=== PATIENT | female | born 1990 | race Caucasian/White ===

== ENCOUNTER 2021-10-15 23:21 | Emergency (ER) | payer BC, MEDICAID, SELFPAY ==
--- NOTE | 2021-10-15 23:26 | ED_ITS ---
HPI - Abdominal Pain General: Stated Complaint: abd pain Time Seen by Provider: 10/15/21 23:26 Discharge Plan Discharge Condition: Stable Coding Level of Care Code ED Iron Worker Foreman for Marcin Roth
[2021-10-15 23:27] VITALS: BP 159/107; PULSE 80; RESP 18; TEMP 36.4; O2SAT 97; BMI 35.5
--- NOTE | 2021-10-15 23:31 | USR_ITS ---
PROCEDURE INFORMATION: Exam: US Abdomen, Limited; Right Upper Quadrant Exam date and time: 10/15/2021 11:31 PM Age: 30 years old Clinical indication: Abdominal pain; Generalized; Additional info: Abd pain TECHNIQUE: Imaging protocol: US abdomen. Real time ultrasound with image documentation. Limited exam focused on the right upper quadrant. COMPARISON: No relevant prior studies available. FINDINGS: Liver: Mild increase in echotexture of liver parenchyma which could represent underlying steatosis. No focal liver lesion. Gallbladder: Normal. No gallstones. There is no gallbladder wall thickening. Common bile duct: Normal. No stones. No dilation. Pancreas: Visualized pancreas is unremarkable. Right kidney: Normal. No mass. No hydronephrosis. US/US gall bladder [id number] IMPRESSION: No acute abnormality in the right upper quadrant the abdomen.
--- NOTE | 2021-10-15 23:31 | W.ED.ABDPA2 ---
HPI - Abdominal Pain General: Chief Complaint: Abdominal Pain Stated Complaint: abd pain Time Seen by Provider: 10/15/21 23:26 Source: patient Mode of arrival: ambulatory Limitations: no limitations History of Present Illness: 30-year-old female states over the last week she has been having right upper quadrant abdominal pain. States that tonight the pains worsened especially since 6:30 PM when she ate. She has had some nausea denies vomiting denies fever she denies any worsening proving factors currently. No history of any abdominal surgeries. Associated Symptoms: Denies chills, dysuria and fever(s) Review of Systems Const: Denies: fever(s), chills, body aches or change in appetite Eyes: Denies: blurry vision or eye discomfort ENMT: Denies: throat pain or dental pain Card: Denies: chest pain Resp: Denies: dyspnea GI: Reports: abdominal pain : Denies: dysuria Musc: Denies: neck pain or back pain Skin/Breast: Denies: rash Neuro: Denies: headache(s) Psych: Denies: depression Anderson/Lymph: Denies: easy bruising All/Imm: Denies: urticaria PFSH ED PFSH: Medical History (Updated 10/16/21 @ 02:32 by Fernanda Monroe MD) No pertinent past medical history Social History (Updated 10/15/21 @ 23:32 by Fernanda Monroe MD) Substance/Drug Use: never Physical Exam Const: COMMON NORMALS: no acute distress, patient oriented x3 and healthy appearing HENMT: COMMON NORMALS: normocephalic and atraumatic HEAD & SCALP: normocephalic and atraumatic Eye: COMMON NORMALS: Equal, round and reactive pupils present and EOMs intact bilaterally PUPIL: Yes Equal, round and reactive pupils present Neck/C-Spine: COMMON NORMALS: full ROM and supple Chest: COMMONS NORMALS: normal inspection of the chest and normal palpation of entire chest wall Resp: COMMON NORMALS: normal respiratory effort, No retractions, No use of accessory muscles and clear to auscultation bilaterally AUSCULTATION: clear to auscultation bilaterally Cardio: COMMON NORMALS: regular rate, regular rhythm and No murmurs present (Cardio) RATE: regular rate RHYTHM: regular rhythm GI: COMMON NORMALS: Normal to inspection, nondistended, normoactive bowel sounds present, Soft to palpation, non-tender and no masses PALPATION: Yes Soft to palpation and Yes Tenderness to palpation present (GI) Details: RUQ Extremity: COMMON NORMALS: normal to inspection and full ROM Neuro: COMMON NORMALS: patient oriented x3, moves all extremities and no focal motor deficits Psych: COMMON NORMALS: mental status grossly normal, Normal thought process present and cooperative THOUGHT PROCESS: Normal thought process present Skin: COMMON NORMALS: no rashes or lesions noted and no wounds GENERAL SKIN EXAM: no rashes or lesions noted Course Vital Signs: Vital signs: Vital Signs Temperature 97.6 F 10/15/21 23:27 Pulse Rate 67 10/16/21 01:28 Respiratory Rate 16 10/16/21 01:28 Blood Pressure 151/97 10/16/21 01:28 Pulse Oximetry 98 10/16/21 01:28 MDM - Abdominal Pain Medical Decision Making . Patient presents for abdominal pain over the right upper quadrant ultrasound here showed no signs of cholecystitis blood work is normal as well. We will place patient on pain meds have her follow-up with surgery and return if worsening she understands agrees to plan. Lab Data : 10/15/21 23:45 10/15/21 23:45 Labs/Radiology: Radiology Impressions Gallbladder Ultrasound 10/15/21 23:31 IMPRESSION: No acute abnormality in the right upper quadrant the abdomen. Laboratory Results WBC 7.7 10^3/uL (4.0-10.0) 10/15/21 23:45 RBC 4.59 10^6/uL (4.1-5.3) 10/15/21 23:45 Hgb 12.5 g/dL (11.5-15.3) 10/15/21 23:45 Hct 38.6 % (37.0-47.0) 10/15/21 23:45 MCV 84.1 fl (81-99) 10/15/21 23:45 MCH 27.2 pg (28.0-34.0) L 10/15/21 23:45 MCHC 32.4 g/dL (30.0-36.0) 10/15/21 23:45 RDW 12.8 % (12.1-15.1) 10/15/21 23:45 Plt Count 341 10^3/cmm (130-400) 10/15/21 23:45 MPV 11.7 fL (7.4-10.4) H 10/15/21 23:45 Neut % (Auto) 71.0 % 10/15/21 23:45 Lymph % (Auto) 19.5 % 10/15/21 23:45 [place] % (Auto) 7.9 % 10/15/21 23:45 Eos % (Auto) 0.4 % 10/15/21 23:45 Baso % (Auto) 0.5 % 10/15/21 23:45 Neut # (Auto) 5.45 10^3/uL (1.8-7.7) 10/15/21 23:45 Lymph # (Auto) 1.5 10^3/uL (0.8-4.8) 10/15/21 23:45 [place] # (Auto) 0.6 10^3/uL (0.2-0.9) 10/15/21 23:45 Eos # (Auto) 0.0 10^3/uL (0.0-0.8) 10/15/21 23:45 Baso # (Auto) 0.0 10^3/uL (0.0-0.1) 10/15/21 23:45 Nucleated RBC % (auto) 0 % 10/15/21 23:45 Nucleated RBCs # 0.0 /100WBC 10/15/21 23:45 Sodium 138 mmol/L (136-145) 10/15/21 23:45 Potassium 4.1 mmol/L (3.5-5.1) 10/15/21 23:45 Chloride 101 mmol/L (98-107) 10/15/21 23:45 Carbon Dioxide 25 mmol/L (22-29) 10/15/21 23:45 Anion Gap 16.1 (5-19) 10/15/21 23:45 BUN 12 mg/dL (6-20) 10/15/21 23:45 Creatinine 0.6 mg/dL (0.5-0.9) 10/15/21 23:45 GFR Calculation 115.9 mL/min (90-130) 10/15/21 23:45 Glucose 92 mg/dL (65-115) 10/15/21 23:45 Calculated Osmolality 285 mOsm/kg (285-295) 10/15/21 23:45 Calcium 9.5 mg/dL (8.5-10.5) 10/15/21 23:45 Total Bilirubin 1.3 mg/dL (0.15-1.2) H 10/15/21 23:45 AST 363 U/L (0-32) H 10/15/21 23:45 ALT 263 U/L (0-33) H 10/15/21 23:45 Alkaline Phosphatase 143 IU/L (35-105) H 10/15/21 23:45 Total Protein 7.5 g/dL (6.6-8.7) 10/15/21 23:45 Albumin 4.5 g/dL (3.5-5.2) 10/15/21 23:45 Globulin 3.0 g/dL (1.3-4.6) 10/15/21 23:45 Lipase 19 U/L (13-60) 10/15/21 23:45 HCG, Qual Negative (Negative) 10/15/21 23:45 Urine Color Yellow (Yellow) 10/16/21 01:15 Urine Appearance Clear (CLEAR) 10/16/21 01:15 Urine pH 5 (5-7) 10/16/21 01:15 Ur Specific [place] 1.020 (1.005-1.030) 10/16/21 01:15 Urine Protein Neg (Negative) 10/16/21 01:15 Urine Glucose (UA) Norm (Normal) 10/16/21 01:15 Urine Ketones Negative (Negative) 10/16/21 01:15 Urine Blood 2+ (Negative) H 10/16/21 01:15 Urine Nitrate Negative (Negative) 10/16/21 01:15 Urine Bilirubin 1+ (Negative) H 10/16/21 01:15 Urine Urobilinogen 1 mg/dL (Negative) H 10/16/21 01:15 Ur Leukocyte Esterase Negative (Negative) 10/16/21 01:15 Urine RBC 10-15 /hpf (0-2) H 10/16/21 01:15 Urine WBC 0-4 /hpf (0-5) H 10/16/21 01:15 Ur Squamous Epith Cells 0-4 /hpf (0-5) H 10/16/21 01:15 Amorphous Sediment Not Reportable 10/16/21 01:15 Urine Bacteria Trace /hpf (NONE) 10/16/21 01:15 Urine Mucus 2+ /hpf 02/22/22 01:15 Discharge Plan Discharge Patient Disposition: Home Clinical Impression: Abdominal pain Condition: Stable Prescriptions: New hydrocodone-acetaminophen 5-325 mg tablet 1 tab PO Q6H PRN (Reason: pain) Qty: 14 0RF ondansetron 4 mg tablet,disintegrating 4 mg PO Q6H PRN (Reason: nausea and vomiting) Qty: 14 0RF Protonix 40 mg tablet,delayed release (DR/EC) 40 mg PO DAILY Qty: 60 0RF Discharge Orders: Discharge ED (Routine); Ordered 10/16/21 Ordered By: Fernanda Monroe Referrals: Talha Granados MD [Physician] - 1-3 days Discharge Diet: Advance as tolerated Discharge Activity: Resume usual activity Patient Instructions: Abdominal Pain (ED), Opioid Safety Coding Level of Care Code ED Donor Floor Technician for Chg Fwd Exam Comprehensive
[2021-10-15] MEDS: sodium chloride 0.9% 1,000 ML 999 ML IV (23:43)
[2021-10-15] MEDS: ondansetron 2 mg/ML SDV 2 mL 4 MG IVP (23:44)
[2021-10-15 23:53] LABS: Basophils % 0.5 %; Eosinophils % 0.4 %; Hematocrit 38.6 % (37.0-47.0); Hemoglobin 12.5 g/dL (11.5-15.3); Lymphocytes # 1.5 10^3/uL (0.8-4.8); Lymphocytes % 19.5 %; Mean Corpuscular HGB Conc 32.4 g/dL (30.0-36.0); Mean Corpuscular Hemoglobin 27.2 pg (28.0-34.0); Mean Corpuscular Volume 84.1 fl (81-99); Mean Platelet Volume 11.7 fL (7.4-10.4); Monocytes # 0.6 10^3/uL (0.2-0.9); Monocytes % 7.9 %; Neutrophils # 5.45 10^3/uL (1.8-7.7); Nucleated Red Blood Cells % 0 %; Platelet Count 341 10^3/cmm (130-400); Red Blood Count 4.59 10^6/uL (4.1-5.3); Red Cell Distribution Width 12.8 % (12.1-15.1); White Blood Count 7.7 10^3/uL (4.0-10.0)
[2021-10-16 00:10] LABS: HCG, Serum Qual Negative (Negative)
[2021-10-16 00:14] LABS: Alanine Aminotransferase 263 U/L (0-33); Albumin Level 4.5 g/dL (3.5-5.2); Alkaline Phosphatase 143 IU/L (35-105); Anion Gap 16.1 (5-19); Aspartate Amino Transferase 363 U/L (0-32); Blood Urea Nitrogen 12 mg/dL (6-20); Calcium 9.5 mg/dL (8.5-10.5); Carbon Dioxide 25 mmol/L (22-29); Chloride 101 mmol/L (98-107); Glomerular Filtration Rate 115.9 mL/min (90-130); Glucose 92 mg/dL (65-115); Lipase 19 U/L (13-60); Osmolality Calculated 285 mOsm/kg (285-295); Potassium 4.1 mmol/L (3.5-5.1); Sodium 138 mmol/L (136-145); Total Bilirubin 1.3 mg/dL (0.15-1.2); Total Protein 7.5 g/dL (6.6-8.7)
[2021-10-16 01:28] VITALS: BP 151/97; PULSE 67; RESP 16; O2SAT 98
[2021-10-16 01:34] LABS: Add Urine Culture? No; Add Urine Microscopic? YES; Bacteria Urine TRACE /hpf; Bilirubin Urine 1+ (Negative); Blood Urine 2+ (Negative); Glucose Urine UA Norm (Normal); Ketones Urine Negative (Negative); Leukocyte Esterase Urine Negative (Negative); Mucus Urine 2+ /hpf; Nitrate Urine Negative (Negative); Protein Urine Neg (Negative); Squamous Epithelial Cell Urine 0-4 /hpf (0-5); Urine Appearance Clear (CLEAR); Urine Color Yellow (Yellow); Urobilinogen Urine 1 mg/dL (Negative); WBC Urine 0-4 /hpf (0-5); pH Urine 5 (5-7)
== END 2021-10-16 02:57 | disposition home or self-care (01) ==
PROVIDERS: Nurse Practitioner Family; Emergency Provider Emergency Medicine
DX: R10.9 Unspecified abdominal pain (principal)
CPT/HCPCS: 76705; 80053; 81001; 83690; 84703; 85025; 96361; 96374; 96375; 99284; J2405; J7030

== ENCOUNTER 2021-10-16 03:35 | Inpatient (IN) | payer BC, SELFPAY ==
[2021-10-16] VITALS (18 sets, daily range): BP systolic 113–149; BP diastolic 69–113; PULSE 56–94; RESP 16–24; TEMP 36.2–36.9; O2SAT 93–100; BMI 26.6
--- NOTE | 2021-10-16 03:36 | CTR_ITS ---
PROCEDURE INFORMATION: Exam: CT Abdomen And Pelvis With Contrast Exam date and time: 10/16/2021 3:36 AM Age: 30 years old Clinical indication: Nausea and vomiting; Abdominal pain; Localized; Upper; Additional info: Abd pain TECHNIQUE: Imaging protocol: Computed tomography of the abdomen and pelvis with contrast. Radiation optimization: All CT scans at this facility use at least one of these dose optimization techniques: automated exposure control; mA and/or kV adjustment per patient size (includes targeted exams where dose is matched to clinical indication); or iterative reconstruction. Contrast material: OMNI 300; Contrast volume: 95 ml; Contrast route: INTRAVENOUS (IV); COMPARISON: US gall bladder [id number] 10/15/2021 11:50 PM RADIATION DOSE METRICS: Total DLP (mGy-cm): 1728.34 FINDINGS: Liver: Slight intrahepatic ductal dilatation. No abnormally decreased density in the liver compared to the spleen; delayed images not available. No enhancing liver mass. Gallbladder and bile ducts: Gallstones again evident. Gallbladder distension, but no significant thickening of its wall. No extrahepatic biliary ductal dilatation. No calcified stone in the CBD. Pancreas: Pancreatic enlargement with haziness and fluid in the fat along it. Fluid in the anterior pararenal spaces, especially on the left. Slight fluid and stranding in the transverse mesocolon. No pancreatic ductal dilatation. Spleen: No splenomegaly. Adrenal glands: No adrenal mass. Kidneys and ureters: 7.9 mm irregular stone in the left lower renal sinus. No hydronephrosis or ureteral stone. Stomach and bowel: Suspicion of adhesions. No bowel obstruction. Appendix: No appendicitis. Intraperitoneal space: No free air. Slight fluid in the lesser sac. Vasculature: Moderate to marked left ovarian and pelvic varices. Minimal right ovarian and slight right pelvic varices, also. Two left renal arteries. No aortic aneurysm. Lymph nodes: Enlarged periportal lymph node. No enlarged nodes elsewhere. Urinary bladder: Unremarkable as visualized. Reproductive: Mild uterine prominence. No ovarian enlargement. Bones/joints: Unremarkable. No acute fracture. Soft tissues: Small round density in the subcutaneous fat of the left buttock consistent with residual from a prior injection. CT/CT abdomen pelvis w con* [id number] IMPRESSION: 1. Acute pancreatitis. Cholelithiasis again evident. Slight intrahepatic ductal dilatation, but no calcified stone in the nonenlarged CBD. 2. Irregular stone in the left lower renal sinus. No hydronephrosis or ureteral stone. 3. 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 Enlarged periportal lymph node. Other findings mentioned above.
--- NOTE | 2021-10-16 03:41 | ED_ITS ---
Documented by User: Fernanda Monroe MD 10/16/21 05:33 HPI - Abdominal Pain General: Chief Complaint: Abdominal Pain Stated Complaint: ABD Pain Time Seen by Provider: 10/16/21 03:36 Source: patient Mode of arrival: ambulatory Limitations: no limitations History of Present Illness: 30-year-old female seen here earlier tonight for upper abdominal pain patient's ultrasound here showed no signs of cholecystitis or acute findings blood work was normal earlier as well. She was having no pain at discharge her states that when she got home started having severe pain again in her epigastric region states pain is currently an 8 out of 10 much worse with movement improved with rest no vomiting no diarrhea no fever. Associated Symptoms: Denies chills, dysuria and fever(s) Review of Systems Const: Denies: fever(s), chills, body aches or change in appetite Eyes: Denies: blurry vision or eye discomfort ENMT: Denies: throat pain or dental pain Card: Denies: chest pain Resp: Denies: dyspnea GI: Reports: abdominal pain : Denies: dysuria Musc: Denies: neck pain or back pain Skin/Breast: Denies: rash Neuro: Denies: headache(s) Psych: Denies: depression Anderson/Lymph: Denies: easy bruising All/Imm: Denies: urticaria PFSH ED PFSH: Medical History No pertinent past medical history Social History Substance/Drug Use: never Physical Exam Const: COMMON NORMALS: no acute distress, patient oriented x3 and healthy appearing HENMT: COMMON NORMALS: normocephalic and atraumatic HEAD & SCALP: normocephalic and atraumatic Eye: COMMON NORMALS: Equal, round and reactive pupils present and EOMs intact bilaterally PUPIL: Yes Equal, round and reactive pupils present Neck/C-Spine: COMMON NORMALS: full ROM and supple Chest: COMMONS NORMALS: normal inspection of the chest and normal palpation of entire chest wall Resp: COMMON NORMALS: normal respiratory effort, No retractions, No use of accessory muscles and clear to auscultation bilaterally AUSCULTATION: clear to auscultation bilaterally Cardio: COMMON NORMALS: regular rate, regular rhythm and No murmurs present (Cardio) RATE: regular rate RHYTHM: regular rhythm GI: COMMON NORMALS: Normal to inspection, nondistended, normoactive bowel sounds present, Soft to palpation and no masses PALPATION: Yes Soft to palpation and Yes Tenderness to palpation present (GI) (epigastric tenderness) Extremity: COMMON NORMALS: normal to inspection and full ROM Neuro: COMMON NORMALS: patient oriented x3, moves all extremities and no focal motor deficits Psych: COMMON NORMALS: mental status grossly normal, Normal thought process present and cooperative THOUGHT PROCESS: Normal thought process present Skin: COMMON NORMALS: no rashes or lesions noted and no wounds GENERAL SKIN EXAM: no rashes or lesions noted Course Vital Signs: Vital signs: Vital Signs Temperature 97.2 F L 10/16/21 03:39 Pulse Rate 56 L 10/16/21 07:45 Respiratory Rate 18 10/16/21 07:45 Blood Pressure 147/69 10/16/21 07:45 Pulse Oximetry 96 10/16/21 07:23 MDM - Abdominal Pain Lab Data : 10/16/21 04:22 10/16/21 04:22 Labs/Radiology: Radiology Impressions Abdomen/Pelvis CT 10/16/21 03:36 IMPRESSION: 1. Acute pancreatitis. Cholelithiasis again evident. Slight intrahepatic ductal dilatation, but no calcified stone in the nonenlarged CBD. 2. Irregular stone in the left lower renal sinus. No hydronephrosis or ureteral stone. 3. 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 Enlarged periportal lymph node. Other findings mentioned above. Laboratory Results WBC 7.7 10^3/uL (4.0-10.0) 10/16/21 04:22 RBC 4.17 10^6/uL (4.1-5.3) 10/16/21 04:22 Hgb 11.5 g/dL (11.5-15.3) 10/16/21 04:22 Hct 36.3 % (37.0-47.0) L 10/16/21 04:22 MCV 87.1 fl (81-99) 10/16/21 04:22 MCH 27.6 pg (28.0-34.0) L 10/16/21 04:22 MCHC 31.7 g/dL (30.0-36.0) 10/16/21 04:22 RDW 13.1 % (12.1-15.1) 10/16/21 04:22 Plt Count 286 10^3/cmm (130-400) 10/16/21 04:22 MPV 12.3 fL (7.4-10.4) H 10/16/21 04:22 Neut % (Auto) 72.6 % 10/16/21 04:22 Lymph % (Auto) 17.8 % 10/16/21 04:22 [place] % (Auto) 8.7 % 10/16/21 04:22 Eos % (Auto) 0.4 % 10/16/21 04:22 Baso % (Auto) 0.1 % 10/16/21 04:22 Neut # (Auto) 5.59 10^3/uL (1.8-7.7) 10/16/21 04:22 Lymph # (Auto) 1.4 10^3/uL (0.8-4.8) 10/16/21 04:22 [place] # (Auto) 0.7 10^3/uL (0.2-0.9) 10/16/21 04:22 Eos # (Auto) 0.0 10^3/uL (0.0-0.8) 10/16/21 04:22 Baso # (Auto) 0.0 10^3/uL (0.0-0.1) 10/16/21 04:22 Nucleated RBC % (auto) 0 % 10/16/21 04:22 Nucleated RBCs # 0.0 /100WBC 10/16/21 04:22 Sodium 138 mmol/L (136-145) 10/16/21 04:22 Potassium 3.7 mmol/L (3.5-5.1) 10/16/21 04:22 Chloride 103 mmol/L (98-107) 10/16/21 04:22 Carbon Dioxide 25 mmol/L (22-29) 10/16/21 04:22 Anion Gap 13.7 (5-19) 10/16/21 04:22 BUN 12 mg/dL (6-20) 10/16/21 04:22 Creatinine 0.6 mg/dL (0.5-0.9) 10/16/21 04:22 GFR Calculation 115.9 mL/min (90-130) 10/16/21 04:22 Glucose 100 mg/dL (65-115) 10/16/21 04:22 Calculated Osmolality 286 mOsm/kg (285-295) 10/16/21 04:22 Calcium 8.6 mg/dL (8.5-10.5) 10/16/21 04:22 Total Bilirubin 1.8 mg/dL (0.15-1.2) H 10/16/21 04:22 AST 414 U/L (0-32) H 10/16/21 04:22 ALT 350 U/L (0-33) H 10/16/21 04:22 Alkaline Phosphatase 122 IU/L (35-105) H 10/16/21 04:22 Total Protein 6.6 g/dL (6.6-8.7) 10/16/21 04:22 Albumin 3.8 g/dL (3.5-5.2) 10/16/21 04:22 Globulin 2.8 g/dL (1.3-4.6) 10/16/21 04:22 Lipase 59309 U/L (13-60) H 10/16/21 04:22 Hepatitis A IgM Ab Non-reactive (Nonreactive) 10/15/21 23:45 Hep Bs Antigen Non-reactive (Nonreactive) 10/15/21 23:45 Hep Bs Antibody 377.0 (11.5-1000) 10/15/21 23:45 Hep B Core Total Ab Non-reactive (Nonreactive) 10/15/21 23:45 Hepatitis C Antibody Non-reactive (Nonreactive) 10/15/21 23:45 Discharge Plan Discharge Prescriptions: No Action ondansetron 4 mg tablet,disintegrating 4 mg PO Q6H PRN (Reason: nausea and vomiting) Qty: 14 0RF pantoprazole [Protonix] 40 mg tablet,delayed release (DR/EC) 40 mg PO DAILY Qty: 60 0RF Vitamin C 500 mg Tablet 500 mg PO .OCCASIONALLY 0RF ibuprofen 200 mg Tablet 400 - 600 mg PO Q6H PRN (Reason: Pain) 0RF garlic Tablet 1 tab PO .OCCASIONALLY 0RF Fish Oil 1 cap PO .OCCASIONALLY 0RF Vitamin D3 1 cap PO .OCCASIONALLY 0RF Coding Level of Care Code ED Advertising Account Executive for Chg Fwd Exam Comprehensive Documented by User: Destin Marvin DO 10/16/21 08:38 HPI - Abdominal Pain General: Chief Complaint: Abdominal Pain Stated Complaint: ABD Pain Time Seen by Provider: 10/16/21 03:36 PFSH ED PFSH: Medical History No pertinent past medical history Social History Substance/Drug Use: never Course Vital Signs: Vital signs: Vital Signs Temperature 97.2 F L 10/16/21 03:39 Pulse Rate 56 L 10/16/21 07:45 Respiratory Rate 18 10/16/21 07:45 Blood Pressure 147/69 10/16/21 07:45 Pulse Oximetry 96 10/16/21 07:23 MDM - Abdominal Pain Medical Decision Making CT shows cholelithiasis reviewing ultrasound and discussed with Dr. Grullon she feels there was cholelithiasis present on the initial ultrasound although the initial report does not read as such. Her lipase is surprisingly elevated from earlier this evening although the CT did read out as having acute pancreatitis. It her T bili is also elevated as well as her last liver enzymes was no dilation of the common bile duct. Discussed with Dr. Ortega will admit. I am starting her on Zosyn. Pain control n.p.o. and fluids we will repeat a redraw for amylase and lipase. Medical Records I reviewed the patient's medical records. Lab Data I reviewed the patient's lab results. : 10/16/21 04:22 10/16/21 04:22 Labs/Radiology: Radiology Impressions Abdomen/Pelvis CT 10/16/21 03:36 IMPRESSION: 1. Acute pancreatitis. Cholelithiasis again evident. Slight intrahepatic ductal dilatation, but no calcified stone in the nonenlarged CBD. 2. Irregular stone in the left lower renal sinus. No hydronephrosis or ureteral stone. 3. 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 Enlarged periportal lymph node. Other findings mentioned above. Laboratory Results WBC 7.7 10^3/uL (4.0-10.0) 10/16/21 04: RBC 4.17 10^6/uL (4.1-5.3) 10/16/21 04:22 Hgb 11.5 g/dL (11.5-15.3) 10/16/21 04:22 Hct 36.3 % (37.0-47.0) L 10/16/21 04:22 MCV 87.1 fl (81-99) 10/16/21 04:22 MCH 27.6 pg (28.0-34.0) L 10/16/21 04:22 MCHC 31.7 g/dL (30.0-36.0) 10/16/21 04:22 RDW 13.1 % (12.1-15.1) 10/16/21 04:22 Plt Count 286 10^3/cmm (130-400) 10/16/21 04:22 MPV 12.3 fL (7.4-10.4) H 10/16/21 04:22 Neut % (Auto) 72.6 % 10/16/21 04:22 Lymph % (Auto) 17.8 % 10/16/21 04:22 [place] % (Auto) 8.7 % 10/16/21 04:22 Eos % (Auto) 0.4 % 10/16/21 04:22 Baso % (Auto) 0.1 % 10/16/21 04:22 Neut # (Auto) 5.59 10^3/uL (1.8-7.7) 10/16/21 04:22 Lymph # (Auto) 1.4 10^3/uL (0.8-4.8) 10/16/21 04:22 [place] # (Auto) 0.7 10^3/uL (0.2-0.9) 10/16/21 04:22 Eos # (Auto) 0.0 10^3/uL (0.0-0.8) 10/16/21 04:22 Baso # (Auto) 0.0 10^3/uL (0.0-0.1) 10/16/21 04:22 Nucleated RBC % (auto) 0 % 10/16/21 04:22 Nucleated RBCs # 0.0 /100WBC 10/16/21 04:22 Sodium 138 mmol/L (136-145) 10/16/21 04:22 Potassium 3.7 mmol/L (3.5-5.1) 10/16/21 04:22 Chloride 103 mmol/L (98-107) 10/16/21 04:22 Carbon Dioxide 25 mmol/L (22-29) 10/16/21 04:22 Anion Gap 13.7 (5-19) 10/16/21 04:22 BUN 12 mg/dL (6-20) 10/16/21 04:22 Creatinine 0.6 mg/dL (0.5-0.9) 10/16/21 04:22 GFR Calculation 115.9 mL/min (90-130) 10/16/21 04:22 Glucose 100 mg/dL (65-115) 10/16/21 04:22 Calculated Osmolality 286 mOsm/kg (285-295) 10/16/21 04:22 Calcium 8.6 mg/dL (8.5-10.5) 10/16/21 04:22 Total Bilirubin 1.8 mg/dL (0.15-1.2) H 10/16/21 04:22 AST 414 U/L (0-32) H 10/16/21 04:22 ALT 350 U/L (0-33) H 10/16/21 04:22 Alkaline Phosphatase 122 IU/L (35-105) H 10/16/21 04:22 Total Protein 6.6 g/dL (6.6-8.7) 10/16/21 04:22 Albumin 3.8 g/dL (3.5-5.2) 10/16/21 04:22 Globulin 2.8 g/dL (1.3-4.6) 10/16/21 04:22 Lipase 10137 U/L (13-60) H 10/16/21 04:22 Hepatitis A IgM Ab Non-reactive (Nonreactive) 10/15/21 23:45 Hep Bs Antigen Non-reactive (Nonreactive) 10/15/21 23:45 Hep Bs Antibody 377.0 (11.5-1000) 10/15/21 23:45 Hep B Core Total Ab Non-reactive (Nonreactive) 10/15/21 23:45 Hepatitis C Antibody Non-reactive (Nonreactive) 10/15/21 23:45 Discharge Plan Discharge Prescriptions: No Action ondansetron 4 mg tablet,disintegrating 4 mg PO Q6H PRN (Reason: nausea and vomiting) Qty: 14 0RF pantoprazole [Protonix] 40 mg tablet,delayed release (DR/EC) 40 mg PO DAILY Qty: 60 0RF Vitamin C 500 mg Tablet 500 mg PO .OCCASIONALLY 0RF ibuprofen 200 mg Tablet 400 - 600 mg PO Q6H PRN (Reason: Pain) 0RF garlic Tablet 1 tab PO .OCCASIONALLY 0RF Fish Oil 1 cap PO .OCCASIONALLY 0RF Vitamin D3 1 cap PO .OCCASIONALLY 0RF Coding Level of Care Code ED Advertising Account Executive for Chg Fwd Exam Comprehensive
[2021-10-16] MEDS: lidocaine 2% viscous 15 ML, aluminum-mag hydrox-simethicon 30 ML, sucralfate oral liq 1 GM PO (03:46)
[2021-10-16] MEDS: morphine 4 mg/mL SDV 1 mL IVP (03:46)
[2021-10-16] MEDS: ondansetron 2 mg/ML SDV 2 mL 4 MG IVP ×4 (03:51→22:19)
[2021-10-16] MEDS: iohexol 300 mg/mL 100 mL Btl IV (04:13)
[2021-10-16 04:43] LABS: Hepatitis A Antibody IgM Non-Reactive (Nonreactive); Hepatitis B Core AB, Total Non-Reactive (Nonreactive); Hepatitis B Surface Antigen Non-Reactive (Nonreactive); Hepatitis C Virus Antibody Non-Reactive (Nonreactive)
[2021-10-16] MEDS: HYDROmorphone 1 mg/mL INJ 1 mL IVP ×2 (05:12→07:23)
[2021-10-16] MEDS: lactated ringers 1,000 ML 999 ML IV (06:25)
[2021-10-16 07:15] LABS: Basophils % 0.1 %; Eosinophils % 0.4 %; Hematocrit 36.3 % (37.0-47.0); Hemoglobin 11.5 g/dL (11.5-15.3); Lymphocytes # 1.4 10^3/uL (0.8-4.8); Lymphocytes % 17.8 %; Mean Corpuscular HGB Conc 31.7 g/dL (30.0-36.0); Mean Corpuscular Hemoglobin 27.6 pg (28.0-34.0); Mean Corpuscular Volume 87.1 fl (81-99); Mean Platelet Volume 12.3 fL (7.4-10.4); Monocytes # 0.7 10^3/uL (0.2-0.9); Monocytes % 8.7 %; Neutrophils # 5.59 10^3/uL (1.8-7.7); Neutrophils % 72.6 %; Nucleated Red Blood Cells % 0 %; Platelet Count 286 10^3/cmm (130-400); Red Blood Count 4.17 10^6/uL (4.1-5.3); Red Cell Distribution Width 13.1 % (12.1-15.1); White Blood Count 7.7 10^3/uL (4.0-10.0)
[2021-10-16 07:27] LABS: Alanine Aminotransferase 350 U/L (0-33); Albumin Level 3.8 g/dL (3.5-5.2); Alkaline Phosphatase 122 IU/L (35-105); Anion Gap 13.7 (5-19); Aspartate Amino Transferase 414 U/L (0-32); Blood Urea Nitrogen 12 mg/dL (6-20); Calcium 8.6 mg/dL (8.5-10.5); Carbon Dioxide 25 mmol/L (22-29); Chloride 103 mmol/L (98-107); Creatinine Clr Calc Pharmacy 139.2241; Globulin 2.8 g/dL (1.3-4.6); Glomerular Filtration Rate 115.9 mL/min (90-130); Glucose 100 mg/dL (65-115); Osmolality Calculated 286 mOsm/kg (285-295); Potassium 3.7 mmol/L (3.5-5.1); Sodium 138 mmol/L (136-145); Total Bilirubin 1.8 mg/dL (0.15-1.2); Total Protein 6.6 g/dL (6.6-8.7)
--- NOTE | 2021-10-16 07:48 | PC.NURSE ---
Resting in bed, rates pain 2/10 after dilaudid.
[2021-10-16 08:05] LABS: Lipase 13220 U/L (13-60)
--- NOTE | 2021-10-16 08:20 | P.HP_ITS ---
Providers/Chief Complaint Admitting Physician: General Surgery Talha Granados MD Chief Complaint: ABD Pain History of Present Illness Lamar Rice is a 30 year old female who started having right upper quadrant abdominal pain yesterday. This was associated with some nausea. She says she has had several similar episodes over the past couple of months and figured she was having gallbladder issues. She just delivered a baby in July, and t farooqnks she was having some symptoms of biliary colic during her . She came to the emergency department last night and an ultrasound was read as no evidence of cholelithiasis. The patient's pain actually eased up and she eventually went home, but says after she was up walking around for about 45 minutes at home the pain returned. She says now the pain seems to radiate off the either side of the upper abdomen. She has been somewhat constipated lately and had a very small bowel movement yesterday morning. She denies any evidence of hematochezia, melena, acholic stools, jaundice, etc. She came back to the emergency room today and a CAT scan was done and actually revealed cholelithia sis and evidence of acute pancreatitis. The patient's liver function studies were mildly elevated and her amylase and lipase were both elevated, as well. Interestingly, her lipase was measured at over 13,000 after being normal last night. A repeat confirmation test was done and it was already significantly lower again. Review of Systems General: Reports: 10 or more systems reviewed and unremarkable except in HPI and below Const: Denies: fever(s) Resp: Denies: dyspnea GI: Reports: abdominal pain, nausea and vomiting; Denies: hematemesis, hematochezia or melena Medications/Allergies Home Medications Medication Instructions Recorded Confirmed Last Taken Type Fish Oil 1 cap PO .OCCASIONALLY 10/16/21 10/16/21 Unknown History Vitamin D3 1 cap PO .OCCASIONALLY 10/16/21 10/16/21 Unknown History ascorbic acid (vitamin C) 500 mg 500 mg PO .OCCASIONALLY 10/16/21 10/16/21 Unknown History tablet (Vitamin C) garlic 1 tab PO .OCCASIONALLY 10/16/21 10/16/21 Unknown History ibuprofen 200 mg tablet 400 - 600 mg PO Q6H PRN 10/16/21 10/16/21 Unknown History ondansetron 4 mg disintegrating 4 mg PO Q6H PRN #14 tab 10/16/21 10/16/21 Unknown Rx tablet pantoprazole 40 mg tablet,delayed 40 mg PO DAILY #60 tab 10/16/21 10/16/21 Unknown Rx release (Protonix) Allergies Allergy/AdvReac Type Severity Reaction Status Date / Time No Known Allergies Allergy Verified 10/16/21 07:54 PFSH Acute PFSH: Medical History (Updated 10/16/21 @ 12:03 by Talha Granados MD) No pertinent past medical history Surgical History (Updated 10/16/21 @ 12:05 by Talha Granados MD) History of oral surgery Social History (Updated 10/16/21 @ 12:05 by Talha Granados MD) Smoking and tobacco status: never smoked Alcohol intake: never Substance/Drug Use: never Vitals/I&O/Wt Last Vital Signs Temp 97.2 F L 10/16/21 03:39 Pulse 56 L 10/16/21 07:45 Resp 18 10/16/21 07:45 BP 147/69 10/16/21 07:45 Pulse Ox 96 10/16/21 07:23 10/15/21 10/16/21 10/16/21 22:59 06:59 14:59 Intake Total 1000 / 1000 Balance 1000 / 1000 Weight last 48 hrs Weight 165 lb Physical Exam Narrative: The patient was encountered in her hospital room. She does not arti ear to be in any distress. The pupils are equal. No carotid bruits are heard. The lungs are clear anteriorly. The heart is regular. The abdomen is mildly to moderately obese but has good bowel sounds and is soft. The patient does have mild/moderate tenderness in both the left and right upper quadrants as well as the epigastrium. Patel sign is equivocal. The extremities reveal no edema. N eurologically the patient appears to be grossly intact. Data : 10/16/21 04:22 10/16/21 04:22 Other Labs: Laboratory Tests 10/16/21 10/16/21 04:22 08:40 Total Bilirubin 1.8 H AST 414 H ALT 350 H Alkaline Phosphatase 122 H Amylase 1462 H* Lipase 96651 H 2094 H US: Radiologist's impression: RUQ US 10/15/2021IMPRESSION: No acute abnormality in the right upper quadrant the abdomen. CT Abd/Pel: Radiologist's impression: CT abdomen/pelvis 10/16/2021 IMPRESSION: 1. Acute pancreatitis. Cholelithiasis again evident. Slight intrahepatic ductal dilatation, but no calcified stone in the nonenlarged CBD. 2. Irregular stone in the left lower renal sinus. No hydronephrosis or ureteral stone. 3. 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 Enlarged periportal lymph node. A&P Assessment and plan (1) Gallstone pancreatitis: I have to assume the patient's pancreatitis is secondary to passing a gallstone. There is no evidence of a retained stone on CAT scan currently and her lipase already seems the be decreasing rather rapidly if the laboratory results are to be believed. We discussed gallstone pancreatitis in some detail. I told the patient that we are somewhat at the mercy of her pancreas and what do see that get better before we proceed with a cholecystectomy. 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 Recheck labs tomorrow morning. Timing of a cholecystectomy will be based on the patient's clinical progress. Status: Acute Attestations Medical Necessity Statement*: Based on my medical assessment, presenting symptoms, medical accuity and consideration of surgical therapy, I expect this patient will require treatment in the hospital for a period spanning at least 2 midnights. Coding Level of Care Code Acute Brick Kiln Burner for Marcin Roth Diagnoses Gallstone pancreatitis K85.10
[2021-10-16 09:32] LABS: Amylase 1462 U/L (28-100); Lipase 2094 U/L (13-60)
[2021-10-16] MEDS: piperacillin-tazobactam 4.5 GM in sodium chloride 0.9% (plus) 50 ML IV (09:52)
[2021-10-16] MEDS: HYDROmorphone 1 mg/mL INJ 1 mL 0.5 MG IVP ×5 (11:42→22:19)
[2021-10-16] MEDS: D5-NS 0.45% + KCL 20 mEq 20 MEQ/1,000 ML BAG 100 MEQ IV ×2 (12:42→22:19)
[2021-10-16] MEDS: famotidine 20 mg/2 mL INJ IVP ×2 (12:42→23:13)
[2021-10-16] MEDS: piperacillin-tazobactam 3.375 GM in sodium chloride 0.9% (plus) 50 ML IV (17:34)
[2021-10-16] MEDS: guaiFENesin 600 mg Tablet PO (17:49)
[2021-10-17] VITALS (12 sets, daily range): BP systolic 107–121; BP diastolic 71–83; PULSE 87–108; RESP 16–20; TEMP 36.9–37.9; O2SAT 95
[2021-10-17] MEDS: HYDROmorphone 1 mg/mL INJ 1 mL 0.5 MG IVP ×5 (01:44→21:09)
[2021-10-17] MEDS: piperacillin-tazobactam 3.375 GM in sodium chloride 0.9% (plus) 50 ML IV ×3 (01:45→17:16)
[2021-10-17 03:03] LABS: Basophils % 0.2 %; Eosinophils % 0.2 %; Hematocrit 36.6 % (37.0-47.0); Hemoglobin 11.8 g/dL (11.5-15.3); Lymphocytes # 1.3 10^3/uL (0.8-4.8); Lymphocytes % 13.1 %; Mean Corpuscular HGB Conc 32.2 g/dL (30.0-36.0); Mean Corpuscular Hemoglobin 27.6 pg (28.0-34.0); Mean Corpuscular Volume 85.5 fl (81-99); Mean Platelet Volume 11.5 fL (7.4-10.4); Monocytes # 0.7 10^3/uL (0.2-0.9); Monocytes % 6.6 %; Neutrophils # 7.92 10^3/uL (1.8-7.7); Neutrophils % 79.4 %; Nucleated Red Blood Cells % 0 %; Platelet Count 274 10^3/cmm (130-400); Red Blood Count 4.28 10^6/uL (4.1-5.3); Red Cell Distribution Width 13.2 % (12.1-15.1)
[2021-10-17 03:21] LABS: Alanine Aminotransferase 265 U/L (0-33); Albumin Level 3.8 g/dL (3.5-5.2); Alkaline Phosphatase 125 IU/L (35-105); Aspartate Amino Transferase 120 U/L (0-32); Blood Urea Nitrogen 8 mg/dL (6-20); Calcium 8.8 mg/dL (8.5-10.5); Carbon Dioxide 26 mmol/L (22-29); Chloride 105 mmol/L (98-107); Glucose 106 mg/dL (65-115); Osmolality Calculated 289 mOsm/kg (285-295); Sodium 140 mmol/L (136-145); Total Bilirubin 1.1 mg/dL (0.15-1.2); Total Protein 6.8 g/dL (6.6-8.7)
[2021-10-17 03:31] LABS: Amylase 557 U/L (28-100)
[2021-10-17 03:44] LABS: Lipase 551 U/L (13-60)
[2021-10-17] MEDS: ondansetron 2 mg/ML SDV 2 mL 4 MG IVP (05:51)
--- NOTE | 2021-10-17 07:26 | PM.PN ---
Subjective Subjective: Patient says she feels about the same. She seems to notice her discomfort is a little bit more confined to the epigastrium and left upper quadrant today. She is not passing any flatus. Vitals/I&O/Wt Last Vital Signs Temp 98.8 F 10/17/21 04:00 Pulse 88 10/17/21 04:00 Resp 18 10/17/21 05:51 BP 109/74 10/17/21 04:00 Pulse Ox 95 10/17/21 04:00 10/16/21 10/17/21 10/17/21 22:59 06:59 14:59 Intake Total 1061.667 / 2471.667 410 / 2471.667 Output Total 500 / 700 Balance 561.667 / 1771.667 410 / 1771.667 Weight last 48 hrs Weight 165 lb Physical Exam Narrative: Bowel sounds are infrequent. The abdomen remains soft and she has some mild tenderness remaining in the upper abdomen. She tells me she does not feel like she is urinating much. Data : 10/17/21 02:48 10/17/21 02:48 Other Labs: Laboratory Tests 10/17/21 02:48 Total Bilirubin 1.1 Direct Bilirubin 0.30 AST 120 H ALT 265 H Alkaline Phosphatase 125 H Amylase 557 H* Lipase 551 H A&P Assessment and plan (1) Gallstone pancreatitis: I have to assume the patient's pancreatitis is secondary to passing a gallstone. There is no evidence of a retained stone on CAT scan. We discussed gallstone pancreatitis in some detail. I told the patient that we are somewhat at the mercy of her pancreas and what do see that get better before we proceed with a cholecystectomy. 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 Laboratory studies appear to be improving rather quickly. I told the patient we may be ready discussed a cholecystectomy as early as tomorrow morning. 500 mL LR bolus. Status: Acute Attestations Medical Necessity Statement*: Patient requires continued inpatient care for acute pancreatitis/eventual plans for cholecystectomy. Coding Level of Care Code Acute News Camera Person for Marcin Roth Diagnoses Gallstone pancreatitis K85.10
[2021-10-17] MEDS: lactated ringers 500 ML 999 ML IV (07:56)
[2021-10-17] MEDS: D5-NS 0.45% + KCL 20 mEq 20 MEQ/1,000 ML BAG 100 MEQ IV ×2 (07:57→17:17)
[2021-10-17] MEDS: HYDROcodone-acetaminophen 5-325 mg Tablet PO ×4 (08:03→23:07)
--- NOTE | 2021-10-17 10:16 | PC.CHAP ---
Pastoral Care Encounter/Spiritual Assessment Type of Contact [] Declined dimension mill worker visit [] Patient/Family/Request visit [] Outpatient visit [] Follow-up visit [] Physician referral [] Code/Alert [x] Routine visit [] Staff referral [] Actively dying [x] Patient sleeping [] Family support [] [] Out of room [] Palliative care [] [] Receiving care in room [] Pre-surgical visit [] Trauma [] Long length of stay [] ICU visit [] Other: Relational/Emotional Strength [] Patient feels connected with others/family/visitors/staff [] Distress [] Loneliness/isolation [] Abandonment Spirituality of Patient [] Person of Kanchan [] Attends Uatsdin of their Kanchan [] Believes in Prayer [] Reads Bible or Sikh materials [] There are Spiritual issues to be addressed Prism Measurer Interventions [] Prayer [] Active listening [] Non-anxious presence [] Spiritual/emotional support [] Crisis/trauma care [] Spiritual counseling [] Bereavement support [] Provided bereavement packet [] Provided Bible/devotional materials [] Provided toy/stuffed animal, coloring book to patient or family member [] Provided Communion [] Anointing/[place] [] Salvation [] Completed spiritual assessment [] Other: Impact on Illness or Injury [] Angry [] Fearful [] Anxious [] Often cries [] Exhaustion [] Unable to work [] Unable to attend adventism [] Unable to walk/stand [] Unable to read [] Unable to drive [] Unable to eat/drink [] Unable to sleep [] Unable to be with family [] Patient intubated [] Other: Summary Time spent with patient
[2021-10-17] MEDS: famotidine 20 mg/2 mL INJ IVP ×2 (11:07→23:07)
[2021-10-18] VITALS (8 sets, daily range): BP systolic 102–121; BP diastolic 68–76; PULSE 0–94; RESP 15–18; TEMP 37.2–37.7; O2SAT 92–98
[2021-10-18] MEDS: piperacillin-tazobactam 3.375 GM in sodium chloride 0.9% (plus) 50 ML IV ×3 (01:44→18:37)
[2021-10-18] MEDS: HYDROcodone-acetaminophen 5-325 mg Tablet PO ×5 (02:50→21:03)
[2021-10-18] MEDS: D5-NS 0.45% + KCL 20 mEq 20 MEQ/1,000 ML BAG 100 MEQ IV ×2 (02:51→14:31)
[2021-10-18 05:12] LABS: Basophils % 0.2 %; Eosinophils % 0.2 %; Hematocrit 35.2 % (37.0-47.0); Hemoglobin 11.1 g/dL (11.5-15.3); Lymphocytes # 1.3 10^3/uL (0.8-4.8); Mean Corpuscular HGB Conc 31.5 g/dL (30.0-36.0); Mean Corpuscular Hemoglobin 27.8 pg (28.0-34.0); Mean Corpuscular Volume 88.2 fl (81-99); Mean Platelet Volume 11.1 fL (7.4-10.4); Monocytes # 1.1 10^3/uL (0.2-0.9); Monocytes % 8.8 %; Neutrophils # 10.37 10^3/uL (1.8-7.7); Neutrophils % 80.3 %; Nucleated Red Blood Cells % 0 %; Platelet Count 269 10^3/cmm (130-400); Red Blood Count 3.99 10^6/uL (4.1-5.3); Red Cell Distribution Width 13.2 % (12.1-15.1); White Blood Count 12.9 10^3/uL (4.0-10.0)
[2021-10-18 05:28] LABS: Alanine Aminotransferase 143 U/L (0-33); Albumin Level 3.7 g/dL (3.5-5.2); Alkaline Phosphatase 108 IU/L (35-105); Amylase 218 U/L (28-100); Aspartate Amino Transferase 33 U/L (0-32); Globulin 2.6 g/dL (1.3-4.6); Lipase 92 U/L (13-60); Total Bilirubin 1.6 mg/dL (0.15-1.2); Total Protein 6.3 g/dL (6.6-8.7)
[2021-10-18 05:29] LABS: Anion Gap 10.6 (5-19); Blood Urea Nitrogen 5 mg/dL (6-20); Calcium 8.8 mg/dL (8.5-10.5); Carbon Dioxide 26 mmol/L (22-29); Chloride 103 mmol/L (98-107); Creatinine Clr Calc Pharmacy 139.2241; Glomerular Filtration Rate 115.9 mL/min (90-130); Glucose 97 mg/dL (65-115); Osmolality Calculated 279 mOsm/kg (285-295); Potassium 3.6 mmol/L (3.5-5.1); Sodium 136 mmol/L (136-145)
--- NOTE | 2021-10-18 06:57 | PM.PN ---
Subjective Subjective: The patient says she is feeling better today. She is now passing flatus. Vitals/I&O/Wt Last Vital Signs Temp 99.3 F 10/18/21 04:27 Pulse 65 10/18/21 06:00 Resp 18 10/18/21 04:27 BP 115/68 10/18/21 04:27 Pulse Ox 96 10/18/21 04:27 10/17/21 10/17/21 10/18/21 14:59 22:59 06:59 Intake Total 1563.333 / 3553.333 983.333 / 3553.333 1006.667 / 3553.333 Output Total 350 / 1000 650 / 1000 Balance 1213.333 / 2553.333 333.333 / 2553.333 1006.667 / 2553.333 Physical Exam Narrative: The patient ran a temp bowel sounds are present. She still has some mild left upper quadrant tenderness. Data : 10/18/21 04:52 10/18/21 04:52 Other Labs: Laboratory Tests 10/18/21 04:52 Total Bilirubin 1.6 H Direct Bilirubin 0.40 H AST 33 H ALT 143 H Alkaline Phosphatase 108 H Amylase 218 H Lipase 92 H A&P Assessment and plan (1) Gallstone pancreatitis: The patient seems to be improving, although her white blood cell and liver function tests are slightly up again this morning. We have discussed a cholecystectomy probably tomorrow morning now. She is agreeable to that plan. Status: Acute Attestations Medical Necessity Statement*: Patient needs continued inpatient care for acute pancreatitis/awaiting timing of cholecystectomy. Coding Level of Care Code Acute Superintendent Production for Marcin Roth Diagnoses Gallstone pancreatitis K85.10
--- NOTE | 2021-10-18 09:52 | PC.CHAP ---
Pastoral Care Encounter/Spiritual Assessment Type of Contact [] Declined sewer and inspector visit [] Patient/Family/Request visit [] Outpatient visit [] Follow-up visit [] Physician referral [] Code/Alert [x] Routine visit [] Staff referral [] Actively dying [x] Patient sleeping [] Family support [] [] Out of room [] Palliative care [] [] Receiving care in room [] Pre-surgical visit [] Trauma [] Long length of stay [] ICU visit [] Other: Relational/Emotional Strength [] Patient feels connected with others/family/visitors/staff [] Distress [] Loneliness/isolation [] Abandonment Spirituality of Patient [] Person of Kanchan [] Attends Protestant of their [place] [] Believes in Prayer [] Reads Bible or Mosque materials [] There are Spiritual issues to be addressed Wind Plant Manager Interventions [] Prayer [] Active listening [] Non-anxious presence [] Spiritual/emotional support [] Crisis/trauma care [] Spiritual counseling [] Bereavement support [] Provided bereavement packet [] Provided Bible/devotional materials [] Provided toy/stuffed animal, coloring book to patient or family member [] Provided Communion [] Anointing/[place] [] Salvation [] Completed spiritual assessment [] Other: Impact on Illness or Injury [] Angry [] Fearful [] Anxious [] Often cries [] Exhaustion [] Unable to work [] Unable to attend pentecostalism [] Unable to walk/stand [] Unable to read [] Unable to drive [] Unable to eat/drink [] Unable to sleep [] Unable to be with family [] Patient intubated [] Other: Summary Time spent with patient
[2021-10-18] MEDS: famotidine 20 mg/2 mL INJ IVP (14:31)
--- NOTE | 2021-10-18 19:38 | ANES.PREANE2 ---
Pre-Anesthetic Assessment Height/Weight: Height 1.68 m Weight 74.843 kg Temp Pulse Resp BP Pulse Ox 99.0 F 88 15 102/70 95 10/18/21 16:34 10/18/21 16:34 10/18/21 16:34 10/18/21 16:34 10/18/21 16:34 Preop Diagnosis: Gallstone pancreatitis Operation Date: 10/19/21 07:00 Proposed Procedures p Laparoscopic Cholecystectomy with Cholangiograms(Not Applicable) - Talha Granados MD Familial anesthetic complications: None Was Beta Jennifer taken within 24 hours: N/A Was Clonidine taken within 24 hours: N/A Social No alcohol and No tobacco Exam alert, oriented x 3, clear to auscultation bilaterally and regular rate & rhythm Airway Submandibular: within normal limits Cervical ROM: within normal limits Mallampati: Class II Dentition: full History/ROS No significant history except as noted Pulmonary None reported CV/HEM Anemia None reported Hepatic Elevated LFTs GI Gall stone pancreatitis Metabolic None reported Musc/skel None reported Neuropsych None reported Anesthetic Plan ASA status: 3 (30 year old female with gallstone pancreatitis ) Anesthesia: Anesthesia Evaluation and General Other: We discussed risk and benefits of general anesthesia including PONV, sore throat (sometimes severe), corneal abrasion, positioning and peripheral nerve injuries, life threatening allergic reaction, post operative ICU admission requiring prolonged intubation, stroke, heart attack, , and rare incidences of recall. Patient consents to proceed with general anesthesia. Risk of > 500 ml blood loss (7ml/kg in children): No Medications/Allergies Home Medications Medication Instructions Recorded Confirmed Last Taken Type Fish Oil 1 cap PO .OCCASIONALLY 10/16/21 10/16/21 Unknown History Vitamin D3 1 cap PO .OCCASIONALLY 10/16/21 10/16/21 Unknown History ascorbic acid (vitamin C) 500 mg 500 mg PO .OCCASIONALLY 10/16/21 10/16/21 Unknown History tablet (Vitamin C) garlic 1 tab PO .OCCASIONALLY 10/16/21 10/16/21 Unknown History ibuprofen 200 mg tablet 400 - 600 mg PO Q6H PRN 10/16/21 10/16/21 Unknown History ondansetron 4 mg disintegrating 4 mg PO Q6H PRN #14 tab 10/16/21 10/16/21 Unknown Rx tablet pantoprazole 40 mg tablet,delayed 40 mg PO DAILY #60 tab 10/16/21 10/16/21 Unknown Rx release (Protonix) Allergies Allergy/AdvReac Type Severity Reaction Status Date / Time No Known Allergies Allergy Verified 10/16/21 07:54 Current Medications Generic Name Dose Route Start Last Admin Trade Name Freq PRN Reason Stop Dose Admin Hydrocodone Bitart/Acetaminophen 1 - 2 tab 10/17/21 07:25 10/18/21 15:04 Hydrocodone-Acetaminophen 5-325 Mg Tablet PO 2 tab Q4H PRN Administration MODERATE TO SEVERE PAIN Famotidine 20 mg 10/16/21 12:00 10/18/21 14:31 Famotidine 20 Mg/2 Ml Inj IVP 20 mg Q12H JOSH Administration Guaifenesin 600 mg 10/16/21 17:39 10/16/21 17:49 Guaifenesin 600 Mg Tablet PO 600 mg BID PRN Administration CONGESTION Hydromorphone HCl 0.5 mg 10/16/21 09:43 10/17/21 21:09 Hydromorphone 1 Mg/Ml Inj 1 Ml IVP 0.5 mg Q2H PRN Administration PAIN Potassium Chloride/Dextrose/Sod Cl 20 meq in 1,000 mls @ 100 mls/hr 10/16/21 12:00 10/18/21 14:31 D5-Ns 0.45% + Kcl 20 Meq IV 100 mls/hr .Q10H JOSH Administration Piperacillin Sod/Tazobactam 50 mls @ 12.5 mls/hr 10/16/21 18:00 10/18/21 18:37 Sod 3.375 gm/ Sodium Chloride IV 12.5 mls/hr Q8H JOSH Administration Protocol Ondansetron HCl 4 mg 10/16/21 09:43 10/17/21 05:51 Ondansetron 2 Mg/Ml Sdv 2 Ml IVP 4 mg Q6H PRN Administration NAUSEA PFSH Anesthesia Medical History No pertinent past medical history Surgical History History of oral surgery Social History Smoking and tobacco status: never smoked Alcohol intake: never Data Anesthesia : 10/18/21 04:52 10/18/21 04:52 Short CBC 10/17/21 10/18/21 Range/Units 02:48 04:52 WBC 10.0 12.9 H (4.0-10.0) 10^3/uL Hgb 11.8 11.1 L (11.5-15.3) g/dL Hct 36.6 L 35.2 L (37.0-47.0) % MCV 85.5 88.2 (81-99) fl Plt Count 274 269 (130-400) 10^3/cmm Neut % (Auto) 79.4 80.3 % Neut # (Auto) 7.92 H 10.37 H (1.8-7.7) 10^3/uL BMP 10/17/21 10/18/21 02:48 04:52 Sodium 140 136 Potassium 4.0 3.6 Chloride 105 103 Carbon Dioxide 26 26 BUN 8 5 L Creatinine 0.7 0.6 Glucose 106 97 Calcium 8.8 8.8 Liver Function 10/17/21 10/18/21 Range/Units 02:48 04:52 Total Bilirubin 1.1 1.6 H (0.15-1.2) mg/dL Direct Bilirubin 0.30 0.40 H (0.00-0.30) mg/dL AST 120 H 33 H (0-32) U/L ALT 265 H 143 H (0-33) U/L Alkaline Phosphatase 125 H 108 H (35-105) IU/L Albumin 3.8 3.7 (3.5-5.2) g/dL Cardiac Studies: No Data to Display
[2021-10-19] VITALS (26 sets, daily range): BP systolic 102–148; BP diastolic 68–98; PULSE 63–102; RESP 12–27; TEMP 36.3–37.2; O2SAT 89–100
--- NOTE | 2021-10-19 | XR_ITS ---
WS: [id number] C-ARM RADIOGRAPHS RIGHT UPPER QUADRANT; 6 IMAGES HISTORY: gallstone pancreatitis COMPARISON: CT 10/16/2021 Intraoperative injection of the common bile duct. There is very mild distention of the common bile du ct in the central hepatic ducts. No filling defect is evident on the imaging submitted. Normal taperi ng through the pancreatic head. XR/XR cholangio operative [id number] IMPRESSION: No filling defect or obstruction of the common bile duct. No residual stone mary beth ntified.
[2021-10-19] MEDS: D5-NS 0.45% + KCL 20 mEq 20 MEQ/1,000 ML BAG 100 MEQ IV (00:12)
[2021-10-19] MEDS: famotidine 20 mg/2 mL INJ IVP ×3 (01:50→23:25)
[2021-10-19] MEDS: HYDROcodone-acetaminophen 5-325 mg Tablet PO ×3 (01:54→23:23)
[2021-10-19] MEDS: piperacillin-tazobactam 3.375 GM in sodium chloride 0.9% (plus) 50 ML IV (01:54)
[2021-10-19 03:05] LABS: Basophils % 0.2 %; Eosinophils # 0.1 10^3/uL (0.0-0.8); Eosinophils % 0.8 %; Hematocrit 32.5 % (37.0-47.0); Hemoglobin 10.2 g/dL (11.5-15.3); Lymphocytes # 1.6 10^3/uL (0.8-4.8); Lymphocytes % 14.7 %; Mean Corpuscular HGB Conc 31.4 g/dL (30.0-36.0); Mean Corpuscular Hemoglobin 27.6 pg (28.0-34.0); Mean Corpuscular Volume 87.8 fl (81-99); Mean Platelet Volume 10.7 fL (7.4-10.4); Monocytes % 8.6 %; Neutrophils # 8.38 10^3/uL (1.8-7.7); Neutrophils % 75.3 %; Nucleated Red Blood Cells % 0 %; Platelet Count 261 10^3/cmm (130-400); Red Cell Distribution Width 13.2 % (12.1-15.1); White Blood Count 11.1 10^3/uL (4.0-10.0)
[2021-10-19 03:27] LABS: Alanine Aminotransferase 86 U/L (0-33); Albumin Level 3.3 g/dL (3.5-5.2); Alkaline Phosphatase 96 IU/L (35-105); Amylase 88 U/L (28-100); Aspartate Amino Transferase 15 U/L (0-32); Globulin 2.7 g/dL (1.3-4.6); Lipase 28 U/L (13-60); Total Bilirubin 0.9 mg/dL (0.15-1.2)
[2021-10-19 03:28] LABS: Anion Gap 11.7 (5-19); Blood Urea Nitrogen 5 mg/dL (6-20); Calcium 8.6 mg/dL (8.5-10.5); Carbon Dioxide 24 mmol/L (22-29); Chloride 103 mmol/L (98-107); Creatinine Clr Calc Pharmacy 139.2241; Glomerular Filtration Rate 115.9 mL/min (90-130); Glucose 95 mg/dL (65-115); Osmolality Calculated 277 mOsm/kg (285-295); Potassium 3.7 mmol/L (3.5-5.1); Sodium 135 mmol/L (136-145)
--- NOTE | 2021-10-19 06:20 | PC.NURSE ---
PT LEFT FLOOR TO SURGERY AT 0615
--- NOTE | 2021-10-19 06:37 | PM.PN ---
Subjective Subjective: The patient continues to feel little bit better each day. She says over the past couple of days her main pain has been more in her back than in her front. Vitals/I&O/Wt Last Vital Signs Temp 98.9 F 10/19/21 06:36 Pulse 92 10/19/21 06:36 Resp 18 10/19/21 06:36 BP 123/75 10/19/21 06:36 Pulse Ox 96 10/19/21 06:36 10/18/21 10/18/21 10/19/21 14:59 22:59 06:59 Intake Total 1050 / 2755.000 30 / 2755.000 1675.000 / 2755.000 Output Total 700 / 700 Balance 1050 / 2055.000 -670 / 2055.000 1675.000 / 2055.000 Physical Exam Narrative: Mild tenderness remaining. Data : 10/19/21 02:52 10/19/21 02:52 Other Labs: Laboratory Tests 10/19/21 02:52 Total Bilirubin 0.9 Direct Bilirubin 0.30 AST 15 ALT 86 H Alkaline Phosphatase 96 Amylase 88 Lipase 28 A&P Assessment and plan (1) Gallstone pancreatitis: Amylase and lipase have returned normal. Liver function tests are un concerning at this point. Laparoscopic cholecystectomy with intraoperative cholangiography today. The patient says all of her questions have been answered. Status: Acute Attestations Medical Necessity Statement*: Patient requires continued inpatient care for gallstone pancreatitis. Surgery planned for today. Coding Level of Care Code Acute Sugar Trucker for Marcin Roth Diagnoses Gallstone pancreatitis K85.10
[2021-10-19] MEDS: sodium chloride 0.9% 1,000 ML 30 ML IV ×2 (06:43→08:20)
--- NOTE | 2021-10-19 06:54 | P.ANESUD_ITS ---
Pre-Anesthetic Update Pre-Anesthetic Assessment: Date of Surgery/Procedure: 10/19/21 Preop Rose Marie gnosis: Gallstone pancreatitis Proposed Procedure: Operation Date: 10/19/21 07:00 Proposed Procedures p Laparoscopic Cholecystectomy with Cholangiograms(Not Applicable) - Talha Granados MD Any changes to Pre-Anesthetic Assessment?: No Last Intake: Intake Last Liquid Date 10/18/21 Last Liquid Time 23:59 Labs Last 48hrs: Short CBC 10/18/21 10/19/21 Range/Units 04:52 02:52 WBC 12.9 H 11.1 H (4.0-10.0) 10^3/ uL Hgb 11.1 L 10.2 L (11.5-15.3) g/dL Hct 35.2 L 32.5 L (37.0-47.0) % MCV 88.2 87.8 (81-99) fl Plt Count 269 261 (130-400) 10^3/c mm Neut % (Auto) 80.3 75.3 % Neut # (Auto) 10.37 H 8.38 H (1.8-7.7) 10^3/u L BMP 10/18/21 10/19/21 04:52 02:52 Sodium 136 135 L Potassium 3.6 3.7 Chloride 103 103 Carbon Dioxide 26 24 BUN 5 L 5 L Creatinine 0.6 0.6 Glucose 97 95 Calcium 8.8 8.6 Liver Function 10/18/21 10/19/21 Range/Units 04:52 02:52 Total Bilirubin 1.6 H 0.9 (0.15-1.2) mg/dL Direct Bilirubin 0.40 H 0.30 (0.00-0.30) mg/d L AST 33 H 15 (0-32) U/L ALT 143 H 86 H (0-33) U/L Alkaline Phosphata se 108 H 96 (35-105) IU/L Albumin 3.7 3.3 L (3.5-5.2) g/dL Vitals: Temperature 98.9 F 10/19/21 06:36 Temperature Source Temporal Artery S can 10/19/21 06:36 Pulse Rate 92 10/19/21 06:36 Pulse Rhythm 10/16/21 05:51 Pulse Strength 3+ Normal 10/16/21 03:39 Respiratory Rate 18 10/19/21 06:36 Respiratory Effort Non-Labored 10/18/21 20:00 Respiratory Depth Normal 10/18/21 20:00 Respiratory Patter n 10/18/21 20:00 Blood Pressure 123/75 10/19/21 06:36 Blood Pressure Coni n 91 10/19/21 06:36 Blood Pressure Pos ition Semi Fowlers 10/18/21 20:00 Pulse Oximetry 96 10/19/21 06:36 Oxygen Delivery Me thod 10/19/21 06:36 Sepsis Recent Feve r Within 48 Hours No 10/16/21 03:39 Sepsis New/Unexpla ined Change in Men jada Status No 10/16/21 03:39 Exam: Pre-Anes Outpt Exam: alert, oriented x 3, clear to auscultation bilaterally and regular rate & rhythm Cardiac Studies: No Data to Display
--- NOTE | 2021-10-19 06:55 | ANES.PROC ---
Anesthesia Procedures Procedure/Date: 10/19/21 Other Information: After unusuccesful attempt at standard PIV US guided PIV was placed. After sterile prep and using real time US guidance for vessel selection an 18 g PIV was inserted with real time visualization of needle entry and real time visualization of catheter advancement. Tolerated well. 4 attempts total.
[2021-10-19 06:57] LABS: OR HCG Qualitative Urine Negative (Negative)
[2021-10-19] MEDS: scopolamine 1.5 Patch 1 PATCH TRANSDERMA (06:58)
--- NOTE | 2021-10-19 08:22 | PM.OP ---
Operative Report Date of procedure: October 19, 2021 Pre-op diagnosis: Preop Diagnosis Status post episode of gallstone pancreatitis. Post-op diagnosis: Same. Procedure done: Laparoscopic cholecystectomy with intraoperative cholangiography. Specimens removed/disposition: Gallbladder. Surgeon: General Surgery Talha Granados MD Estimated blood loss: 10 mL. Complications: None. Procedure: The patient was brought to the Operating Room and was placed in a supine position on the Operating Room table. General endotracheal anesthesia was induced. The abdomen was prepped and draped in a sterile fashion. A small vertical incision was carried out in the inferior aspect of the umbilicus. Blunt dissection was carried out down to the fascia, which was grasped with a Odilon clamp. A stay suture of 0 Vicryl was placed on either side of the midline and the midline fascia was incised. The underlying peritoneum was opened bluntly and the Sae port was placed directly into the peritoneal cavity and was held in place with the inflatable balloon. The peritoneal cavity was insufflated with carbon dioxide. The laparoscope was used to inspect the abdominal cavity and no gross abnormalities were noted. A 5 millimeter port was placed in the epigastrium under direct vision. Two 5-millimeter ports were placed on the right side of the abdomen under direct vision. The gallbladder was grasped and was elevated. Blunt dissection and hydrodissection were carried out in the infundibular region of the gallbladder and the cystic duct and cystic artery were identified. The gallbladder was partially removed from the liver bed using cautery and the spatula to confirm the anatomy. The [place] dissector was used to manipulate any contents in the cystic duct back towards the gallbladder. A clip was placed on the gallbladder side of the cystic duct. A small opening was made in the cystic duct with a pair of laparoscopic scissors. A 14-gauge angiocatheter was passed through the anterior abdominal wall in the right upper quadrant and was used to pass a cholangiocatheter into the peritoneal cavity. The cholangiocatheter was manipulated into the opening in the cystic duct and the duct was irrigated with saline. Some small stone fragments came out of the small opening in the cystic duct. After all of the return irrigant was clear the cholangiocatheter was held in place with a loose clip. The C-arm was positioned and a cholangiogram was performed. There was good filling of the hepatic radicals and the distal common bile duct. There was good flow of dye into the duodenum without any obvious evidence of filling defects or obstruction. The loose clip holding the cholangiocatheter in place was removed and the cholangiocatheter and angiocatheter were removed from the anterior abdominal wall. The cystic duct and cystic artery were further clipped and completely divided. The gallbladder was then removed from the liver bed using cautery and the spatula. A small hole was inadvertently made in the gallbladder during dissection and a small amount of bile was lost, but no stones were ever seen to have fallen from the gallbladder. After the gallbladder had been removed from the liver bed, the laparoscope was moved to the epigastric port and the gallbladder was removed from the peritoneal cavity through the umbilical port site after being placed in a laparoscopic bag. The stay sutures of Vicryl were tied to each other at the umbilicus, closing the defect so that it was airtight. The perihepatic spaces were irrigated with saline and the liver bed was reinspected. No ongoing problems were seen. The remaining ports were removed from the abdominal wall and the pneumoperitoneum was evacuated. All skin incisions were closed using inverted interrupted sutures of 4-0 Vicryl. Benzoin and Steri-Strips were placed over the incisions and Band-Aids followed. The patient was taken to the Recovery Area in stable condition postoperatively.
--- NOTE | 2021-10-19 08:36 | SUR.PHASEI ---
0828: patient brought into pacu with oral airway in place and simple mask with o2 at 10L and sats at 97%. patient has steri strips and bandaids to 4 sites, not drainage noted. pt adb is soft. pt has no pain per faces.
--- NOTE | 2021-10-19 08:46 | SUR.PHASEI ---
patient arouses to name, oral airway removed. simple mask still in place. patient back asleep.
[2021-10-19] MEDS: fentaNYL 50 mcg/mL INJ 2mL IVP (08:57)
[2021-10-19] MEDS: ondansetron 2 mg/ML SDV 2 mL 4 MG IVP (09:11)
--- NOTE | 2021-10-19 09:12 | SUR.PHASEI ---
patient wakes and complains of nausea. medicated per orders.
--- NOTE | 2021-10-19 09:21 | SUR.PHASEI ---
report called to Nancy Lamar RN
[2021-10-19] MEDS: promethazine 25 mg/mL SDV 1 mL 12.5 MG IM (09:38)
--- NOTE | 2021-10-19 10:21 | SUR.PHASEI ---
patient transported to floor room. nurse present on transfer. patient had moderate amount amount of drainage to one of the right abd sites, bandage changed on the floor. pt abd soft. pt on room air. awake and alert. pt present on arrival to room.
[2021-10-19] MEDS: HYDROmorphone 1 mg/mL INJ 1 mL 0.5 MG IVP (12:09)
--- NOTE | 2021-10-19 12:39 | ANE.PACU2 ---
Inpatient post-anesthesia follow up: Airway intact: Yes Vital signs: Temperature 97.4 F Pulse Rate 82 Respiratory Rate 18 Blood Pressure 135/81 Pulse Oximetry 96 Oxygen Delivery Me thod Room Air Oxygen Flow Rate 2 Fraction of Inspir ed Oxygen Hydration adequate: Yes Nausea and vomiting: No Pain level: 2 Mental status: Baseline
[2021-10-19] MEDS: ketorolac 30 mg/mL INJ IVP (12:56)
[2021-10-20] VITALS: BP 123/84; PULSE 78; RESP 16; TEMP 37; O2SAT 94
[2021-10-20] MEDS: HYDROcodone-acetaminophen 5-325 mg Tablet PO ×2 (03:36→09:28)
[2021-10-20] MEDS: D5-NS 0.45% + KCL 20 mEq 20 MEQ/1,000 ML BAG 100 MEQ IV (03:36)
[2021-10-20 04:00] VITALS: BP 129/80; PULSE 52; RESP 18; TEMP 36.9; O2SAT 95
[2021-10-20 04:30] LABS: Basophils % 0.2 %; Hematocrit 33.5 % (37.0-47.0); Hemoglobin 10.5 g/dL (11.5-15.3); Lymphocytes # 1.4 10^3/uL (0.8-4.8); Lymphocytes % 10.4 %; Mean Corpuscular HGB Conc 31.3 g/dL (30.0-36.0); Mean Corpuscular Hemoglobin 27.6 pg (28.0-34.0); Mean Corpuscular Volume 87.9 fl (81-99); Mean Platelet Volume 11.6 fL (7.4-10.4); Monocytes # 0.9 10^3/uL (0.2-0.9); Monocytes % 7.1 %; Neutrophils # 10.68 10^3/uL (1.8-7.7); Neutrophils % 81.6 %; Nucleated Red Blood Cells % 0 %; Platelet Count 375 10^3/cmm (130-400); Red Blood Count 3.81 10^6/uL (4.1-5.3); Red Cell Distribution Width 13.3 % (12.1-15.1); White Blood Count 13.1 10^3/uL (4.0-10.0)
[2021-10-20 05:05] LABS: Alanine Aminotransferase 61 U/L (0-33); Albumin Level 3.3 g/dL (3.5-5.2); Alkaline Phosphatase 105 IU/L (35-105); Amylase 52 U/L (28-100); Anion Gap 12.8 (5-19); Aspartate Amino Transferase 18 U/L (0-32); Blood Urea Nitrogen 8 mg/dL (6-20); Calcium 8.8 mg/dL (8.5-10.5); Carbon Dioxide 22 mmol/L (22-29); Chloride 107 mmol/L (98-107); Globulin 3.5 g/dL (1.3-4.6); Glucose 100 mg/dL (65-115); Lipase 18 U/L (13-60); Osmolality Calculated 284 mOsm/kg (285-295); Potassium 3.8 mmol/L (3.5-5.1); Sodium 138 mmol/L (136-145); Total Bilirubin 0.3 mg/dL (0.15-1.2); Total Protein 6.8 g/dL (6.6-8.7)
[2021-10-20 08:00] VITALS: BP 147/88; PULSE 75; RESP 18; TEMP 36.4; O2SAT 100
--- NOTE | 2021-10-20 08:54 | PM.DCS ---
Discharge Providers Date of Admission: 10/16/21 09:12 Date of Discharge: October 20, 2021 Attending Provider at Admission: Talha Granados MD Attending Provider at Discharge: Talha Granados MD Diagnoses at Discharge Discharge Diagnosis (1) Gallstone pancreatitis: Status: Acute Reason for Visit Reason for Visit: ABD Pain Hospital Course Hospital Course This is a 31-year-old white female who presented to the emergency department with evidence of gallstone pancreatitis. She was watched in the hospital for several days until her enzymes normalized and she was feeling better. She was then taken for a laparoscopic cholecystectomy with intraoperative cholangiography; there was no obvious evidence of retained stones in the bile ducts. By the following morning the patient was feeling well and was anxious to go home. She was tolerating an oral diet. Her liver function studies and amylase and lipase had all returned to essentially normal levels. She was instructed with respect to diet, activity limitations, wound care, etc. Arrangements will be made for her to follow-up in my office as an outpatient. Physical Exam Narrative: Postoperative day #1: The patient's vital signs are stable. The Band-Aids were removed from her laparoscopic wounds. The Steri-Strips were all left in place and everything looks good. Bowel sounds were present. Discharge Data Studies Completed and Pending Completed Studies During Hospitalization Category Date Time Status CT abdomen pelvis w con* [id number] Urgent Cat Scan 10/16/21 03:36 Completed Pending at discharge Category Date Time Status C-arm Fluoroscopy [id number] Routine Exams 10/19/21 06:59 Taken Pathology: Surgical [PTH] Routine Pth 10/19/21 08:31 Received Radiology Impressions Abdomen/Pelvis CT 10/16/21 03:36 IMPRESSION: 1. Acute pancreatitis. Cholelithiasis again evident. Slight intrahepatic ductal dilatation, but no calcified stone in the nonenlarged CBD. 2. Irregular stone in the left lower renal sinus. No hydronephrosis or ureteral stone. 3. 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 Enlarged periportal lymph node. Other findings mentioned above. Laboratory Results WBC 13.1 10^3/uL (4.0-10.0) H 10/20/21 03:29 RBC 3.81 10^6/uL (4.1-5.3) L 10/20/21 03:29 Hgb 10.5 g/dL (11.5-15.3) L 10/20/21 03: Hct 33.5 % (37.0-47.0) L 10/20/21 03: MCV 87.9 fl (81-99) 10/20/21 03: MCH 27.6 pg (28.0-34.0) L 10/20/21 03: MCHC 31.3 g/dL (30.0-36.0) 10/20/21 03: RDW 13.3 % (12.1-15.1) 10/20/21 03: Plt Count 375 10^3/cmm (130-400) D 10/20/21 03: MPV 11.6 fL (7.4-10.4) H 10/20/21 03: Neut % (Auto) 81.6 % 10/20/21 03: Lymph % (Auto) 10.4 % 10/20/21 03: [place] % (Auto) 7.1 % 10/20/21 03: Eos % (Auto) 0.0 % 10/20/21 03: Baso % (Auto) 0.2 % 10/20/21 03: Neut # (Auto) 10.68 10^3/uL (1.8-7.7) H 10/20/21 03: Lymph # (Auto) 1.4 10^3/uL (0.8-4.8) 10/20/21 03: [place] # (Auto) 0.9 10^3/uL (0.2-0.9) 10/20/21 03: Eos # (Auto) 0.0 10^3/uL (0.0-0.8) 10/20/21 03: Baso # (Auto) 0.0 10^3/uL (0.0-0.1) 10/20/21 03: Nucleated RBC % (auto) 0 % 10/20/21 03: Nucleated RBCs # 0.0 /100WBC 10/20/21 03: Sodium 138 mmol/L (136-145) 10/20/21 03: Potassium 3.8 mmol/L (3.5-5.1) 10/20/21 03: Chloride 107 mmol/L (98-107) 10/20/21 03:29 Carbon Dioxide 22 mmol/L (22-29) 10/20/21 03:29 Anion Gap 12.8 (5-19) 10/20/21 03:29 BUN 8 mg/dL (6-20) 10/20/21 03:29 Creatinine 0.5 mg/dL (0.5-0.9) 10/20/21 03:29 GFR Calculation 143.0 mL/min (90-130) H 10/20/21 03:29 Glucose 100 mg/dL (65-115) 10/20/21 03:29 Calculated Osmolality 284 mOsm/kg (285-295) L 10/20/21 03:29 Calcium 8.8 mg/dL (8.5-10.5) 10/20/21 03:29 Total Bilirubin 0.3 mg/dL (0.15-1.2) 10/20/21 03:29 Direct Bilirubin 0.20 mg/dL (0.00-0.30) 10/20/21 03:29 AST 18 U/L (0-32) 10/20/21 03:29 ALT 61 U/L (0-33) H 10/20/21 03:29 Alkaline Phosphatase 105 IU/L (35-105) 10/20/21 03:29 Total Protein 6.8 g/dL (6.6-8.7) 10/20/21 03:29 Albumin 3.3 g/dL (3.5-5.2) L 10/20/21 03:29 Globulin 3.5 g/dL (1.3-4.6) 10/20/21 03:29 Amylase 52 U/L (28-100) 10/20/21 03:29 Lipase 18 U/L (13-60) 10/20/21 03:29 Urine HCG, Qual Negative (Negative) 10/19/21 06:08 Hepatitis A IgM Ab Non-reactive (Nonreactive) 10/15/21 23:45 Hep Bs Antigen Non-reactive (Nonreactive) 10/15/21 23:45 Hep Bs Antibody 377.0 (11.5-1000) 10/15/21 23:45 Hep B Core Total Ab Non-reactive (Nonreactive) 10/15/21 23:45 Hepatitis C Antibody Non-reactive (Nonreactive) 10/15/21 23:45 Vitals Last Vital Signs Temp 97.6 F 10/20/21 08:00 Pulse 75 10/20/21 08:00 Resp 18 10/20/21 08:00 BP 147/88 10/20/21 08:00 Pulse Ox 100 10/20/21 08:00 Discharge Plan Discharge Patient Disposition: Home Condition: Stable Prescriptions: New hydrocodone-acetaminophen 5-325 mg tablet 1 - 2 tab PO Q5H PRN (Reason: pain) Qty: 30 0RF Continued ondansetron 4 mg tablet,disintegrating 4 mg PO Q6H PRN (Reason: nausea and vomiting) Qty: 14 0RF pantoprazole [Protonix] 40 mg tablet,delayed release (DR/EC) 40 mg PO DAILY Qty: 60 0RF Vitamin C 500 mg Tablet 500 mg PO .OCCASIONALLY 0RF ibuprofen 200 mg Tablet 400 - 600 mg PO Q6H PRN (Reason: Pain) 0RF garlic Tablet 1 tab PO .OCCASIONALLY 0RF Fish Oil 1 cap PO .OCCASIONALLY 0RF Vitamin D3 1 cap PO .OCCASIONALLY 0RF Discharge Orders: Discharge Order (Routine); Ordered 10/20/21 Ordered By: Talha Granados Referrals: Talha Granados MD [Physician] - 7-10 days (Nursing: Please have the patient / family call Dr. Granados's office on Friday ([phone]) and make an appointment for the patient to be seen in 7-10 days.) Discharge Diet: Advance as tolerated Discharge Activity: Limit activity as instructed Patient Instructions: Opioid Safety Activity Restrictions/Additional Instructions: 1. Discharge to home today. 2. Appointment to see Dr. Granados in 7?10 days as above. 3. Leave Steri-Strip(s) on at home may shower as discussed. 4. [place] 5/325 1-2 tablets by mouth every 5 hours as needed for pain. #30, no refills. No lifting over 20 pounds, no repetitive bending or twisting, no strenuous pushing / pulling or other heavy activity. Ambulate regularly. May go up and down steps if needed. Discharge Attestations Time Spent in Discharge Care*: less than 30 min Quality Metrics Clinical Quality Measures [ No reported AMI, CVA or VTE this stay] Coding Level of Care Code Acute Chg FW DC note Diagnoses Gallstone pancreatitis K85.10
[2021-10-20 10:25] VITALS: BP 147/88; PULSE 75; RESP 18; TEMP 36.4; O2SAT 100
== END 2021-10-20 10:26 | disposition home or self-care (01) | DRG 413 ==
LOC: ER 06:11 → MEDSURG 08:57
PROVIDERS: Anesthesiology; Emergency Medicine; Admitting Provider Surgery; Emergency Provider Family Medicine; Visit Provider Surgery
PROC: 0FT44ZZ Resection of Gallbladder, Percutaneous Endoscopic Approach (ICD-10-PCS; CPT 47562; principal; 2021-10-19 07:00)
DX: K85.10 Biliary acute pancreatitis without necrosis or infection (principal)
CPT/HCPCS: 36410; 36415; 74177; 74300; 76000; 76937; 80048; 80053; 80076; 81025; 82150; 83690; 84703; 85025; 86705; 86706; 86709; 86803; 87340; 88304; 96361; 96374; 96375; 96376; 99285; J0330; J0690; J1100; J1170; J1200; J1885; J2270; J2370; J2405; J2543; J2550; J2704; J2710; J3010; J3490; J7030; Q9967

== ENCOUNTER 2021-10-23 02:15 | Emergency (ER) | payer BC, MEDICAID, SELFPAY ==
--- NOTE | 2021-10-23 02:16 | CTR_ITS ---
PROCEDURE INFORMATION: Exam: CT Abdomen And Pelvis With Contrast Exam date and time: 10/23/2021 2:16 AM Age: 30 years old Clinical indication: Abdominal pain; Localized; Right upper quadrant (ruq); Prior surgery; Surgery date: 3-7 days post-operative; Surgery type: Gb; Additional info: Abd pain TECHNIQUE: Imaging protocol: Computed tomography of the abdomen and pelvis with contrast. Radiation optimization: All CT scans at this facility use at least one of these dose optimization techniques: automated exposure control; mA and/or kV adjustment per patient size (includes targeted exams where dose is matched to clinical indication); or iterative reconstruction. Contrast material: OMNI 300; Contrast volume: 95 ml; Contrast route: INTRAVENOUS (IV); COMPARISON: CT abdomen pelvis w con* [id number] 10/16/2021 4:14 AM RADIATION DOSE METRICS: Total DLP (mGy-cm): 1755.7 FINDINGS: Pleural spaces: Mild bilateral pleural fluid collections. Liver: Normal. No mass. Gallbladder and bile ducts: Interval cholecystectomy since the previous exam. Mild residual 5.4 x 2.2 cm fluid collection in the gallbladder fossa. Pancreas: Normal. No ductal dilation. Spleen: Normal. No splenomegaly. Adrenal glands: Normal. No mass. Kidneys and ureters: One or more nonobstructing left renal calyceal stones. Stomach and bowel: Unremarkable. No obstruction. No mucosal thickening. Appendix: No evidence of appendicitis. Intraperitoneal space: [id number] free fluid in the pelvis which could represent postoperative fluid. Vasculature: Unremarkable. No abdominal aortic aneurysm. Lymph nodes: Unremarkable. No enlarged lymph nodes. Urinary bladder: Unremarkable as visualized. Reproductive: Unremarkable as visualized. Bones/joints: Unremarkable. No acute fracture. Soft tissues: Unremarkable. CT/CT abdomen pelvis w con* [id number] IMPRESSION: 1. Mild bilateral pleural fluid collections. 2. Interval cholecystectomy since the previous exam. 3. Mild residual 5.4 x 2.2 cm fluid collection in the gallbladder fossa. 4. Xdcs-dk-[id number] free fluid in the pelvis which could represent postoperative fluid.
[2021-10-23 02:21] VITALS: BP 160/115; PULSE 79; RESP 18; TEMP 36.6; O2SAT 100; BMI 35.5
--- NOTE | 2021-10-23 02:25 | W.ED.ABDPA2 ---
HPI - Abdominal Pain General: Chief Complaint: Abdominal Pain Stated Complaint: ABD Pain from Surgery Friday Time Seen by Provider: 10/23/21 02:15 Source: patient Mode of arrival: ambulatory Limitations: no limitations History of Present Illness: 30-year-old female who was admitted here on Friday and had a cholecystectomy was discharged Friday states she been having some diffuse pain since her surgery but states after having worsening pain yesterday. States mainly in her right flank and right lower quadrant she states pain is sharp rates it a 7 out of 10 denies any vomiting or diarrhea denies any worsening improving factors. Associated Symptoms: Denies chills, dysuria and fever(s) Review of Systems Const: Denies: fever(s), chills, body aches or change in appetite Eyes: Denies: blurry vision or eye discomfort ENMT: Denies: throat pain or dental pain Card: Denies: chest pain Resp: Denies: dyspnea GI: Reports: abdominal pain : Denies: dysuria Musc: Denies: neck pain or back pain Skin/Breast: Denies: rash Neuro: Denies: headache(s) Psych: Denies: depression [place]/Lymph: Denies: easy bruising All/Imm: Denies: urticaria PFSH ED PFSH: Medical History No pertinent past medical history Surgical History History of oral surgery Social History Smoking and tobacco status: never smoked Alcohol intake: never Physical Exam Const: COMMON NORMALS: no acute distress, patient oriented x3 and healthy appearing HENMT: COMMON NORMALS: normocephalic and atraumatic HEAD & SCALP: normocephalic and atraumatic Eye: COMMON NORMALS: Equal, round and reactive pupils present and EOMs intact bilaterally PUPIL: Yes Equal, round and reactive pupils present Neck/C-Spine: COMMON NORMALS: full ROM and supple Chest: COMMONS NORMALS: normal inspection of the chest and normal palpation of entire chest wall Resp: COMMON NORMALS: normal respiratory effort, No retractions, No use of accessory muscles and clear to auscultation bilaterally AUSCULTATION: clear to auscultation bilaterally Cardio: COMMON NORMALS: regular rate, regular rhythm and No murmurs present (Cardio) RATE: regular rate RHYTHM: regular rhythm GI: COMMON NORMALS: Soft to palpation and no masses PALPATION: Yes Soft to palpation OTHER: Incision from cholecystectomy are clean dry intact diffuse moderate tenderness abdomen is soft Extremity: COMMON NORMALS: normal to inspection and full ROM Neuro: COMMON NORMALS: patient oriented x3, moves all extremities and no focal motor deficits Psych: COMMON NORMALS: mental status grossly normal, Normal thought process present and cooperative THOUGHT PROCESS: Normal thought process present Skin: COMMON NORMALS: no rashes or lesions noted and no wounds GENERAL SKIN EXAM: no rashes or lesions noted Course Vital Signs: Vital signs: Vital Signs Temperature 98 F 10/23/21 02:21 Pulse Rate 79 10/23/21 02:21 Respiratory Rate 23 H 10/23/21 03:05 Blood Pressure 160/115 10/23/21 02:21 Pulse Oximetry 100 10/23/21 02:21 MDM - Abdominal Pain Medical Decision Making Patient presents here with abdominal pain likely postsurgical pain. She does have some intra-abdominal fluid is likely from the surgery causing her pain. No signs of acute surgical abdomen blood work here is normal. Very small pleural effusion she has no chest pain no shortness of breath no signs of pulmonary embolism. She is to follow-up with Dr. Granados will write her Percocet she is return if worsening she understands agrees to plan. Lab Data : 10/23/21 02:36 10/23/21 02:36 Labs/Radiology: Radiology Impressions Abdomen/Pelvis CT 10/23/21 02:16 IMPRESSION: 1. Mild bilateral pleural fluid collections. 2. Interval cholecystectomy since the previous exam. 3. Mild residual 5.4 x 2.2 cm fluid collection in the gallbladder fossa. 4. Csou-ug-zhfifwsw free fluid in the pelvis which could represent postoperative fluid. Laboratory Results WBC 11.6 10^3/uL (4.0-10.0) H 10/23/21 02:36 RBC 4.15 10^6/uL (4.1-5.3) 10/23/21 02:36 Hgb 11.4 g/dL (11.5-15.3) L 10/23/21 02:36 Hct 35.6 % (37.0-47.0) L 10/23/21 02:36 MCV 85.8 fl (81-99) 10/23/21 02:36 MCH 27.5 pg (28.0-34.0) L 10/23/21 02:36 MCHC 32.0 g/dL (30.0-36.0) 10/23/21 02:36 RDW 13.1 % (12.1-15.1) 10/23/21 02:36 Plt Count 417 10^3/cmm (130-400) H 10/23/21 02:36 MPV 10.8 fL (7.4-10.4) H 10/23/21 02:36 Neut % (Auto) 81.7 % 10/23/21 02:36 Lymph % (Auto) 11.6 % 10/23/21 02:36 [place] % (Auto) 5.2 % 10/23/21 02:36 Eos % (Auto) 0.3 % 10/23/21 02:36 Baso % (Auto) 0.3 % 10/23/21 02:36 Neut # (Auto) 9.45 10^3/uL (1.8-7.7) H 10/23/21 02:36 Lymph # (Auto) 1.3 10^3/uL (0.8-4.8) 10/23/21 02:36 [place] # (Auto) 0.6 10^3/uL (0.2-0.9) 10/23/21 02:36 Eos # (Auto) 0.0 10^3/uL (0.0-0.8) 10/23/21 02:36 Baso # (Auto) 0.0 10^3/uL (0.0-0.1) 10/23/21 02:36 Nucleated RBC % (auto) 0 % 10/23/21 02:36 Nucleated RBCs # 0.0 /100WBC 10/23/21 02:36 Sodium 140 mmol/L (136-145) 10/23/21 02:36 Potassium 3.8 mmol/L (3.5-5.1) 10/23/21 02:36 Chloride 103 mmol/L (98-107) 10/23/21 02:36 Carbon Dioxide 23 mmol/L (22-29) 10/23/21 02:36 Anion Gap 17.8 (5-19) 10/23/21 02:36 BUN 10 mg/dL (6-20) 10/23/21 02:36 Creatinine 0.6 mg/dL (0.5-0.9) 10/23/21 02:36 GFR Calculation 115.9 mL/min (90-130) 10/23/21 02:36 Glucose 104 mg/dL (65-115) 10/23/21 02:36 Calculated Osmolality 289 mOsm/kg (285-295) 10/23/21 02:36 Calcium 9.6 mg/dL (8.5-10.5) 10/23/21 02:36 Total Bilirubin 0.5 mg/dL (0.15-1.2) 10/23/21 02:36 AST 10 U/L (0-32) 10/23/21 02:36 ALT 26 U/L (0-33) 10/23/21 02:36 Alkaline Phosphatase 149 IU/L (35-105) H 10/23/21 02:36 Total Protein 7.7 g/dL (6.6-8.7) 10/23/21 02:36 Albumin 3.9 g/dL (3.5-5.2) 10/23/21 02:36 Globulin 3.8 g/dL (1.3-4.6) 10/23/21 02:36 Lipase 24 U/L (13-60) 10/23/21 02:36 HCG, Qual Negative (Negative) 10/23/21 02:36 Urine Color Yellow (Yellow) 10/23/21 02:56 Urine Appearance Sl hazy (CLEAR) 10/23/21 02:56 Urine pH 5 (5-7) 10/23/21 02:56 Ur Specific [place] 1.020 (1.005-1.030) 10/23/21 02:56 Urine Protein Neg (Negative) 10/23/21 02:56 Urine Glucose (UA) Norm (Normal) 10/23/21 02:56 Urine Ketones 2+ (Negative) H 10/23/21 02:56 Urine Blood 3+ (Negative) H 10/23/21 02:56 Urine Nitrate Negative (Negative) 10/23/21 02:56 Urine Bilirubin 1+ (Negative) H 10/23/21 02:56 Urine Urobilinogen 1 mg/dL (Negative) H 10/23/21 02:56 Ur Leukocyte Esterase Negative (Negative) 10/23/21 02:56 Urine RBC 50-80 /hpf (0-2) H 10/23/21 02:56 Urine WBC 0-4 /hpf (0-5) H 10/23/21 02:56 Ur Squamous Epith Cells 10-15 /hpf (0-5) H 10/23/21 02:56 Amorphous Sediment Not Reportable 10/23/21 02:56 Urine Bacteria Trace /hpf (NONE) 10/23/21 02:56 Urine Mucus 3+ /hpf 10/23/21 02:56 Discharge Plan Discharge Patient Disposition: Home Clinical Impression: Abdominal pain Condition: Stable Prescriptions: New ondansetron 4 mg tablet,disintegrating 4 mg PO Q6H PRN (Reason: nausea and vomiting) Qty: 14 0RF Percocet 5-325 mg tablet 1 tab PO Q6H PRN (Reason: pain) Qty: 14 0RF No Action ondansetron 4 mg tablet,disintegrating 4 mg PO Q6H PRN (Reason: nausea and vomiting) Qty: 14 0RF pantoprazole [Protonix] 40 mg tablet,delayed release (DR/EC) 40 mg PO DAILY Qty: 60 0RF Vitamin C 500 mg Tablet 500 mg PO .OCCASIONALLY 0RF ibuprofen 200 mg Tablet 400 - 600 mg PO Q6H PRN (Reason: Pain) 0RF garlic Tablet 1 tab PO .OCCASIONALLY 0RF Fish Oil 1 cap PO .OCCASIONALLY 0RF Vitamin D3 1 cap PO .OCCASIONALLY 0RF hydrocodone-acetaminophen 5-325 mg tablet 1 - 2 tab PO Q5H PRN (Reason: pain) Qty: 30 0RF Discharge Orders: Discharge ED (Routine); Ordered 10/23/21 Ordered By: Fernanda Monroe Referrals: Talha Granados MD [Physician] - 1-3 days Discharge Diet: Advance as tolerated Discharge Activity: Resume usual activity Patient Instructions: Abdominal Pain (ED), Opioid Safety Coding Level of Care Code ED [employer] Department Manager for Chg Fwd Exam Comprehensive
[2021-10-23 02:40] VITALS: RESP 17
[2021-10-23] MEDS: morphine 4 mg/mL SDV 1 mL IVP (02:40)
[2021-10-23] MEDS: ondansetron 2 mg/ML SDV 2 mL 4 MG IVP (02:41)
[2021-10-23] MEDS: sodium chloride 0.9% 1,000 ML 999 ML IV ×2 (02:41→03:40)
[2021-10-23 02:46] LABS: Basophils % 0.3 %; Eosinophils % 0.3 %; Hematocrit 35.6 % (37.0-47.0); Hemoglobin 11.4 g/dL (11.5-15.3); Lymphocytes # 1.3 10^3/uL (0.8-4.8); Lymphocytes % 11.6 %; Mean Corpuscular Hemoglobin 27.5 pg (28.0-34.0); Mean Corpuscular Volume 85.8 fl (81-99); Mean Platelet Volume 10.8 fL (7.4-10.4); Monocytes # 0.6 10^3/uL (0.2-0.9); Monocytes % 5.2 %; Neutrophils # 9.45 10^3/uL (1.8-7.7); Neutrophils % 81.7 %; Nucleated Red Blood Cells % 0 %; Platelet Count 417 10^3/cmm (130-400); Red Blood Count 4.15 10^6/uL (4.1-5.3); Red Cell Distribution Width 13.1 % (12.1-15.1); White Blood Count 11.6 10^3/uL (4.0-10.0)
[2021-10-23 02:53] LABS: HCG, Serum Qual Negative (Negative)
[2021-10-23 03:05] VITALS: RESP 23
[2021-10-23] MEDS: HYDROmorphone 1 mg/mL INJ 1 mL IVP ×2 (03:05→03:45)
[2021-10-23 03:08] LABS: Alanine Aminotransferase 26 U/L (0-33); Albumin Level 3.9 g/dL (3.5-5.2); Alkaline Phosphatase 149 IU/L (35-105); Anion Gap 17.8 (5-19); Aspartate Amino Transferase 10 U/L (0-32); Blood Urea Nitrogen 10 mg/dL (6-20); Calcium 9.6 mg/dL (8.5-10.5); Carbon Dioxide 23 mmol/L (22-29); Chloride 103 mmol/L (98-107); Globulin 3.8 g/dL (1.3-4.6); Glomerular Filtration Rate 115.9 mL/min (90-130); Glucose 104 mg/dL (65-115); Lipase 24 U/L (13-60); Osmolality Calculated 289 mOsm/kg (285-295); Potassium 3.8 mmol/L (3.5-5.1); Sodium 140 mmol/L (136-145); Total Bilirubin 0.5 mg/dL (0.15-1.2); Total Protein 7.7 g/dL (6.6-8.7)
[2021-10-23 03:08] LABS: Add Urine Culture? No; Add Urine Microscopic? YES; Bacteria Urine TRACE /hpf; Bilirubin Urine 1+ (Negative); Blood Urine 3+ (Negative); Glucose Urine UA Norm (Normal); Ketones Urine 2+ (Negative); Leukocyte Esterase Urine Negative (Negative); Mucus Urine 3+ /hpf; Nitrate Urine Negative (Negative); Protein Urine Neg (Negative); RBC Urine 50-80 /hpf (0-2); Urine Appearance SL Hazy (CLEAR); Urine Color Yellow (Yellow); Urobilinogen Urine 1 mg/dL (Negative); WBC Urine 0-4 /hpf (0-5); pH Urine 5 (5-7)
[2021-10-23] MEDS: iohexol 300 mg/mL 100 mL Btl IV (03:08)
[2021-10-23] MEDS: ketorolac 30 mg/mL INJ IVP (04:11)
[2021-10-23] MEDS: diphenhydrAMINE 50 mg/mL SDV 1mL 25 MG IVP (04:11)
[2021-10-23] MEDS: metoclopramide 5 mg/mL SDV 2 mL IVP (04:11)
[2021-10-23 04:40] VITALS: PULSE 71; RESP 14; O2SAT 96
[2021-10-23 04:45] VITALS: RESP 20
== END 2021-10-23 04:50 | disposition home or self-care (01) ==
PROVIDERS: Emergency Provider Emergency Medicine
DX: R10.9 Unspecified abdominal pain (principal)
CPT/HCPCS: 74177; 80053; 81001; 83690; 84703; 85025; 96361; 96374; 96375; 96376; 99284; J1170; J1200; J1885; J2270; J2405; J2765; J7030; Q9967

== ENCOUNTER 2022-09-14 20:39 | Observation (INO) | payer BC, MEDICAID, SELFPAY ==
[2022-09-14 20:42] VITALS: BP 164/102; PULSE 87; RESP 20; TEMP 36.6; O2SAT 97
--- NOTE | 2022-09-14 21:05 | USR_ITS ---
PROCEDURE INFORMATION: Exam: US Retroperitoneal; Complete; Kidneys and Bladder Exam date and time: 09/14/2022 9:17 PM Age: 31 years old Clinical indication: Other: Lt flank pain; ; Additional info: L flank/ab pain, HX of kidney/ureter stones TECHNIQUE: Imaging protocol: Real-time ultrasound of the retroperitoneum with image documentation. Complete exam focused on the kidneys and bladder. COMPARISON: US gall bladder [id number] 10/15/2021 11:50 PM FINDINGS: Liver: Hepatic steatosis. Right kidney: Normal. No stones. No hydronephrosis. Left kidney: Moderate left hydroureter with a suspected 8 mm calculus at the left ureterovesical junction. Negative for a left ureteral jet. Urinary bladder: See above. US/US renal BI* [id number] IMPRESSION: 1. Moderate left hydroureter with a suspected 8 mm calculus at the left ureterovesical junction. Negative for a left ureteral jet. 2. Hepatic steatosis.
--- NOTE | 2022-09-14 21:07 | W.ED.BACK ---
Documented by User: SHAKIRA Cooney 09/15/22 00:20 HPI - Back Pain/Injury General: Chief Complaint: Abdominal Pain Stated Complaint: 16 weeks preg. low back and abd pain Time Seen by Provider: 09/14/22 20:50 Source: patient Mode of arrival: ambulatory Limitations: no limitations History of Present Illness: Patient is a nice 31-year-old female who presents to ED today with a complaint of left flank pain or pain around into her abdomen that began a few hours ago. Patient states she does have a history of kidney stones while . She is currently 16 weeks . She denies any urinary symptoms apart from urinary frequency which she attributes to . She is not having any dysuria, hematuria, cloudy or odorous urine. No fevers. MD elicited complaint: back pain Pertinent past history: kidney stones Onset (ago): hour(s) Timing: constant Severity: severe Similar Symptoms Previously: Yes Quality: sharp Location: left flank Radiation: abdomen Exacerbating factors: none Relieving factors: none Context: history of kidney stones Associated symptoms: Reports abdominal pain (radiating from back) and nausea; Deny chills, change in bowel habits, dysuria, fatigue, fever(s), hematuria, urinary urgency or vomiting Work related injury: No Review of Systems Const: Denies: fever(s), chills, body aches, fatigue or malaise Card: Denies: chest pain Resp: Denies: dyspnea GI: Reports: abdominal pain (radiating from back) and nausea; Denies: vomiting, diarrhea or change in bowel habits : Reports: flank pain; Denies: difficulty voiding, dysuria, urinary urgency, urinary hesitancy, hematuria or vaginal bleeding Musc: Reports: back pain (L flank); Denies: neck pain, extremity pain or joint pain Skin/Breast: Denies: rash Neuro: Denies: dizziness PFSH ED PFSH: Medical History No pertinent past medical history Surgical History History of oral surgery Social History Smoking and tobacco status: never smoked Alcohol intake: never Physical Exam Const: COMMON NORMALS: no limitations and alert NUTRITIONAL APPEARANCE: overweight ORIENTATION/CONSCIOUSNESS: Yes awake, Yes oriented to person, Yes oriented to place and Yes oriented to time OTHER: anxious/antsy secondary to pain HENMT: COMMON NORMALS: normocephalic and atraumatic HEAD & SCALP: normal to inspection, normocephalic and atraumatic Resp: COMMON NORMALS: normal respiratory effort and clear to auscultation bilaterally AUSCULTATION: clear to auscultation bilaterally Cardio: COMMON NORMALS: regular rate and regular rhythm RATE: regular rate RHYTHM: regular rhythm GI: COMMON NORMALS: Normal to inspection, nondistended, normoactive bowel sounds present, Soft to palpation, No hepatosplenomegaly present and no masses INSPECTION: Yes normal to inspection and Yes gravid abdomen AUSCULTATION: Yes normoactive bowel sounds PALPATION: Yes Soft to palpation, Yes Tenderness to palpation present (GI) (L abdomen), No Guarding due to palpation present (GI), No Rigid due to palpation and Yes No hepatosplenomegaly present : BLADDER/KIDNEY EXAM: Yes CVA tenderness on the left Back/Pelvis: COMMON NORMALS: thoracic and lumbar spine normal to inspection, no thoracic nor lumbar tenderness and thoraco-lumbar ROM normal GENERAL BACK: Yes CVA tenderness Extremity: COMMON NORMALS: normal to inspection GENERAL: Yes normal exam except as noted Neuro: SOHAIL COMA SCALE: document GCS findings [place] coma scale eye opening: Spontaneous [place] coma scale verbal response: Orientated [place] coma scale motor response: Obey commands [place] coma scale total score: 15 SENSORIUM/ORIENTATION: Yes alert, Yes oriented to person, Yes oriented to place and Yes oriented to time Skin: COMMON NORMALS: no rashes or lesions noted GENERAL SKIN EXAM: no rashes or lesions noted Course Consultations: Consultation #1: Dr. Butts-accepts admission Vital Signs: Vital signs: Vital Signs Temperature 97.3 F L 09/15/22 01:42 Pulse Rate 71 09/15/22 01:50 Respiratory Rate 12 09/15/22 00:57 Blood Pressure 162/98 09/15/22 01:48 Pulse Oximetry 97 09/15/22 01:50 Oxygen Delivery Me thod 09/14/22 20:42 MDM - Back Pain/Injury Medical Decision Making Patient is a 31-year-old female at 16 weeks found to have an 8 mm stone at her left UVJ. Pain was not able to be adequately controlled here she does not feel comfortable going home thus decision was made to admit to Dr. Butts. Labs 09/14/22 21:06 09/14/22 21:06 Radiology Impressions Renal Ultrasound 09/14/22 21:05 IMPRESSION: 1. Moderate left hydroureter with a suspected 8 mm calculus at the left ureterovesical junction. Negative for a left ureteral jet. 2. Hepatic steatosis. Laboratory Results WBC 12.1 10^3/uL (4.0-10.0) H 09/14/22 21:06 RBC 4.30 10^6/uL (4.1-5.3) 09/14/22 21:06 Hgb 12.2 g/dL (11.5-15.3) 09/14/22 21:06 Hct 37.8 % (37.0-47.0) 09/14/22 21: MCV 87.9 fl (81-99) 09/14/22 21: MCH 28.4 pg (28.0-34.0) 09/14/22 21: MCHC 32.3 g/dL (30.0-36.0) 09/14/22 21:06 RDW 13.2 % (12.1-15.1) 09/14/22 21:06 Plt Count 228 10^3/cmm (130-400) 09/14/22 21:06 MPV 11.5 fL (7.4-10.4) H 09/14/22 21:06 Neut % (Auto) 86.6 % 09/14/22 21: Lymph % (Auto) 9.3 % 09/14/22 21:06 [place] % (Auto) 3.1 % 09/14/22 21:06 Eos % (Auto) 0.2 % 09/14/22 21:06 Baso % (Auto) 0.2 % 09/14/22 21:06 Neut # (Auto) 10.49 10^3/uL (1.8-7.7) H 09/14/22 21:06 Lymph # (Auto) 1.1 10^3/uL (0.8-4.8) 09/14/22 21:06 [place] # (Auto) 0.4 10^3/uL (0.2-0.9) 09/14/22 21:06 Eos # (Auto) 0.0 10^3/uL (0.0-0.8) 09/14/22 21:06 Baso # (Auto) 0.0 10^3/uL (0.0-0.1) 09/14/22 21:06 Nucleated RBC % (auto) 0 % 09/14/22 21:06 Nucleated RBCs # 0.0 /100WBC 09/14/22 21:06 Sodium 135 mmol/L (136-145) L 09/14/22 21:06 Potassium 3.7 mmol/L (3.5-5.1) 09/14/22 21:06 Chloride 101 mmol/L (98-107) 09/14/22 21:06 Carbon Dioxide 22 mmol/L (22-29) 09/14/22 21:06 Anion Gap 15.7 (5-19) 09/14/22 21:06 BUN 12 mg/dL (6-20) 09/14/22 21:06 Creatinine 0.6 mg/dL (0.5-0.9) 09/14/22 21:06 GFR Calculation 115.1 mL/min (90-130) 09/14/22 21:06 Glucose 122 mg/dL (65-115) H 09/14/22 21:06 Calculated Osmolality 281 mOsm/kg (285-295) L 09/14/22 21:06 Calcium 9.3 mg/dL (8.5-10.5) 09/14/22 21:06 Total Bilirubin 0.3 mg/dL (0.15-1.2) 09/14/22 21:06 AST 13 U/L (0-32) 09/14/22 21:06 ALT 14 U/L (0-33) 09/14/22 21:06 Alkaline Phosphatase 75 U/L (35-105) 09/14/22 21:06 Total Protein 7.3 g/dL (6.6-8.7) 09/14/22 21:06 Albumin 3.7 g/dL (3.5-5.2) 09/14/22 21:06 Globulin 3.6 g/dL (1.3-4.6) 09/14/22 21:06 Lipase 11 U/L (13-60) L 09/14/22 21:06 Urine Color Yellow (Yellow) 09/14/22 23:00 Urine Appearance Clear (CLEAR) 09/14/22 23:00 Urine pH 5 (5-7) 09/14/22 23:00 Ur Specific [place] 1.030 (1.005-1.030) 09/14/22 23:00 Urine Protein Neg (Negative) 09/14/22 23:00 Urine Glucose (UA) Norm (Normal) 09/14/22 23:00 Urine Ketones 2+ (Negative) H 09/14/22 23:00 Urine Blood Trace (Negative) H 09/14/22 23:00 Urine Nitrate Negative (Negative) 09/14/22 23:00 Urine Bilirubin Neg (Negative) 09/14/22 23:00 Urine Urobilinogen Neg mg/dL (Negative) 09/14/22 23:00 Ur Leukocyte Esterase Negative (Negative) 09/14/22 23:00 Urine RBC 0-4 /hpf (0-2) H 09/14/22 23:00 Urine WBC 0-4 /hpf (0-5) H 09/14/22 23:00 Ur Squamous Epith Cells 15-25 /hpf (0-5) H 09/14/22 23:00 Amorphous Sediment Not Reportable 09/14/22 23:00 Urine Bacteria Trace /hpf (NONE) 09/14/22 23:00 Urine Mucus 2+ /hpf 09/14/22 23:00 Discharge Plan Discharge Patient Disposition: Admitted As Inpatient Admit Provider: Faustino Butts Clinical Impression: Calculus of distal left ureter, 16 weeks gestation of Condition: Stable Coding Level of Care Code ED Bondactor Machine Operator for Chg Fwd Exam Comprehensive Documented by User: Nayan Duggan DO 09/15/22 01:56 HPI - Back Pain/Injury General: Chief Complaint: Abdominal Pain Stated Complaint: 16 weeks preg. low back and abd pain Time Seen by Provider: 09/14/22 20:50 PFSH ED PFSH: Medical History No pertinent past medical history Surgical History History of oral surgery Social History Smoking and tobacco status: never smoked Alcohol intake: never Physical Exam Neuro: SOHAIL COMA SCALE: document GCS findings [place] coma scale total score: 15 Course Vital Signs: Vital signs: Vital Signs Temperature 97.3 F L 09/15/22 01:42 Pulse Rate 71 09/15/22 01:50 Respiratory Rate 12 09/15/22 00:57 Blood Pressure 162/98 09/15/22 01:48 Pulse Oximetry 97 09/15/22 01:50 Oxygen Delivery Me thod 09/14/22 20:42 MDM - Back Pain/Injury Medical Decision Making Patient is a 31-year-old female at 16 weeks found to have an 8 mm stone at her left UVJ. Pain was not able to be adequately controlled here she does not feel comfortable going home thus decision was made to admit to Dr. Butts. This patient was originally seen by Mrs. Servin?LENY Acosta.? I agree with her history, evaluation, and treatment. Labs 09/14/22 21:06 09/14/22 21:06 Radiology Impressions Renal Ultrasound 09/14/22 21:05 IMPRESSION: 1. Moderate left hydroureter with a suspected 8 mm calculus at the left ureterovesical junction. Negative for a left ureteral jet. 2. Hepatic steatosis. Laboratory Results WBC 12.1 10^3/uL (4.0-10.0) H 09/14/22 21:06 RBC 4.30 10^6/uL (4.1-5.3) 09/14/22 21:06 Hgb 12.2 g/dL (11.5-15.3) 09/14/22 21:06 Hct 37.8 % (37.0-47.0) 09/14/22 21:06 MCV 87.9 fl (81-99) 09/14/22 21:06 MCH 28.4 pg (28.0-34.0) 09/14/22 21: MCHC 32.3 g/dL (30.0-36.0) 09/14/22 21:06 RDW 13.2 % (12.1-15.1) 09/14/22 21:06 Plt Count 228 10^3/cmm (130-400) 09/14/22 21:06 MPV 11.5 fL (7.4-10.4) H 09/14/22 21:06 Neut % (Auto) 86.6 % 09/14/22 21:06 Lymph % (Auto) 9.3 % 09/14/22 21:06 [place] % (Auto) 3.1 % 09/14/22 21:06 Eos % (Auto) 0.2 % 09/14/22 21:06 Baso % (Auto) 0.2 % 09/14/22 21:06 Neut # (Auto) 10.49 10^3/uL (1.8-7.7) H 09/14/22 21:06 Lymph # (Auto) 1.1 10^3/uL (0.8-4.8) 09/14/22 21:06 [place] # (Auto) 0.4 10^3/uL (0.2-0.9) 09/14/22 21:06 Eos # (Auto) 0.0 10^3/uL (0.0-0.8) 09/14/22 21:06 Baso # (Auto) 0.0 10^3/uL (0.0-0.1) 09/14/22 21:06 Nucleated RBC % (auto) 0 % 09/14/22 21:06 Nucleated RBCs # 0.0 /100WBC 09/14/22 21:06 Sodium 135 mmol/L (136-145) L 09/14/22 21:06 Potassium 3.7 mmol/L (3.5-5.1) 09/14/22 21:06 Chloride 101 mmol/L (98-107) 09/14/22 21:06 Carbon Dioxide 22 mmol/L (22-29) 09/14/22 21:06 Anion Gap 15.7 (5-19) 09/14/22 21:06 BUN 12 mg/dL (6-20) 09/14/22 21:06 Creatinine 0.6 mg/dL (0.5-0.9) 09/14/22 21:06 GFR Calculation 115.1 mL/min (90-130) 09/14/22 21:06 Glucose 122 mg/dL (65-115) H 09/14/22 21:06 Calculated Osmolality 281 mOsm/kg (285-295) L 09/14/22 21:06 Calcium 9.3 mg/dL (8.5-10.5) 09/14/22 21:06 Total Bilirubin 0.3 mg/dL (0.15-1.2) 09/14/22 21:06 AST 13 U/L (0-32) 09/14/22 21:06 ALT 14 U/L (0-33) 09/14/22 21:06 Alkaline Phosphatase 75 U/L (35-105) 09/14/22 21:06 Total Protein 7.3 g/dL (6.6-8.7) 09/14/22 21: Albumin 3.7 g/dL (3.5-5.2) 09/14/22 21: Globulin 3.6 g/dL (1.3-4.6) 09/14/22 21: Lipase 11 U/L (13-60) L 09/14/22 21:06 Urine Color Yellow (Yellow) 09/14/22 23:00 Urine Appearance Clear (CLEAR) 09/14/22 23:00 Urine pH 5 (5-7) 09/14/22 23:00 Ur Specific [place] 1.030 (1.005-1.030) 09/14/22 23:00 Urine Protein Neg (Negative) 09/14/22 23:00 Urine Glucose (UA) Norm (Normal) 09/14/22 23:00 Urine Ketones 2+ (Negative) H 09/14/22 23:00 Urine Blood Trace (Negative) H 09/14/22 23:00 Urine Nitrate Negative (Negative) 09/14/22 23:00 Urine Bilirubin Neg (Negative) 09/14/22 23:00 Urine Urobilinogen Neg mg/dL (Negative) 09/14/22 23:00 Ur Leukocyte Esterase Negative (Negative) 09/14/22 23:00 Urine RBC 0-4 /hpf (0-2) H 09/14/22 23:00 Urine WBC 0-4 /hpf (0-5) H 09/14/22 23:00 Ur Squamous Epith Cells 15-25 /hpf (0-5) H 09/14/22 23:00 Amorphous Sediment Not Reportable 09/14/22 23:00 Urine Bacteria Trace /hpf (NONE) 09/14/22 23:00 Urine Mucus 2+ /hpf 09/14/22 23:00 Discharge Plan Discharge Patient Disposition: Admitted As Inpatient Admit Provider: Faustino Butts Clinical Impression: Calculus of distal left ureter, 16 weeks gestation of Condition: Stable Coding Level of Care Code ED Bondactor Machine Operator for Chg Fwd Exam Comprehensive
[2022-09-14 21:12] LABS: Basophils % 0.2 %; Eosinophils % 0.2 %; Hematocrit 37.8 % (37.0-47.0); Hemoglobin 12.2 g/dL (11.5-15.3); Lymphocytes # 1.1 10^3/uL (0.8-4.8); Lymphocytes % 9.3 %; Mean Corpuscular HGB Conc 32.3 g/dL (30.0-36.0); Mean Corpuscular Hemoglobin 28.4 pg (28.0-34.0); Mean Corpuscular Volume 87.9 fl (81-99); Mean Platelet Volume 11.5 fL (7.4-10.4); Monocytes # 0.4 10^3/uL (0.2-0.9); Monocytes % 3.1 %; Neutrophils # 10.49 10^3/uL (1.8-7.7); Neutrophils % 86.6 %; Nucleated Red Blood Cells % 0 %; Platelet Count 228 10^3/cmm (130-400); Red Cell Distribution Width 13.2 % (12.1-15.1); White Blood Count 12.1 10^3/uL (4.0-10.0)
[2022-09-14] MEDS: metoclopramide 5 mg/mL SDV 2 mL 10 MG IVP (21:16)
[2022-09-14 21:18] VITALS: RESP 20; O2SAT 98
[2022-09-14] MEDS: morphine 4 mg/mL SDV 1 mL IVP (21:18)
[2022-09-14 21:31] LABS: Alanine Aminotransferase 14 U/L (0-33); Albumin Level 3.7 g/dL (3.5-5.2); Alkaline Phosphatase 75 U/L (35-105); Anion Gap 15.7 (5-19); Aspartate Amino Transferase 13 U/L (0-32); Blood Urea Nitrogen 12 mg/dL (6-20); Calcium 9.3 mg/dL (8.5-10.5); Carbon Dioxide 22 mmol/L (22-29); Chloride 101 mmol/L (98-107); Globulin 3.6 g/dL (1.3-4.6); Glomerular Filtration Rate 115.1 mL/min (90-130); Glucose 122 mg/dL (65-115); Lipase 11 U/L (13-60); Osmolality Calculated 281 mOsm/kg (285-295); Potassium 3.7 mmol/L (3.5-5.1); Sodium 135 mmol/L (136-145); Total Bilirubin 0.3 mg/dL (0.15-1.2); Total Protein 7.3 g/dL (6.6-8.7)
[2022-09-14] MEDS: sodium chloride 0.9% 1,000 ML 999 ML IV (21:48)
[2022-09-14 23:26] LABS: Add Urine Microscopic? YES; Bilirubin Urine Neg (Negative); Blood Urine Trace (Negative); Glucose Urine UA Norm (Normal); Ketones Urine 2+ (Negative); Leukocyte Esterase Urine Negative (Negative); Nitrate Urine Negative (Negative); Protein Urine Neg (Negative); Urine Appearance Clear (CLEAR); Urine Color Yellow (Yellow); Urobilinogen Urine Neg (Negative); pH Urine 5 (5-7)
[2022-09-14 23:27] LABS: Bacteria Urine TRACE /hpf; RBC Urine 0-4 /hpf (0-2); Squamous Epithelial Cell Urine 15-25 /hpf (0-5); WBC Urine 0-4 /hpf (0-5)
[2022-09-14 23:28] LABS: Add Urine Culture? No; Mucus Urine 2+ /hpf
[2022-09-14 23:35] VITALS: RESP 22
[2022-09-14] MEDS: fentaNYL 50 mcg/mL INJ 2mL IVP (23:35)
[2022-09-15] VITALS (52 sets, daily range): BP systolic 110–176; BP diastolic 66–107; PULSE 65–130; RESP 12–17; TEMP 36.3–36.9; O2SAT 93–100; BMI 37.8
[2022-09-15] MEDS: HYDROmorphone 1 mg/mL INJ 1 mL 0.5 MG IVP (00:34)
[2022-09-15] MEDS: lactated ringers 1,000 ML 100 ML IV ×2 (01:59→12:27)
[2022-09-15] MEDS: ondansetron 2 mg/ML SDV 2 mL 4 MG IVP (02:03)
[2022-09-15] MEDS: morphine 4 mg/mL SDV 1 mL IVP (05:52)
--- NOTE | 2022-09-15 07:26 | PM.HP ---
Providers/Chief Complaint Admitting Physician: Faustino Butts MD Chief Complaint: 16 weeks preg. low back and abd pain History of Present Illness Lamar is a 31-year-old white female, , estimated gestational age of 16 weeks, who presented to the emergency department last night with complaints of acute onset of LEFT flank pain wrapping around to the lower abdomen times several hours. Reports a prior history of UROLITHIASIS while . Work-up included routine labs with a white count of 12.1, hemoglobin of 12.2, creatinine of 0.6, urinalysis with no evidence of infection. RENAL ULTRASOUND: Moderate left hydronephrosis with possible 8 mm stone in the left distal ureter, no evidence of ureteral jet on the left side. Patient had significant refractory pain and it was difficult to control emergency department with parenteral medications and was admitted for further evaluation and treatment. Since admission she has been treated with pain medication but she woke up at 4 AM this morning feeling much better. Has had some intermittent pain since that time but nothing as severe as that which brought her to the emergency department. Unaware of having passed a stone. She did have 1 void where she missed the hat. Was experiencing some lower urinary tract symptoms with urgency, pressure, very small voids and that has since resolved. Reports 2 prior pregnancies with stones 1 definitely passed and describes it as a very small and another clinically past but she never sought. No other episodes other than when she was . She is not really had any additional work-up for stones. I did review CT scans from September and October 2021 that show a stone measuring approximately 8 mm in the left lower pole. There was no evidence of mobility from the first to the second. Recommendations: 1. Obtain KUB to try and identify the stone location. The ultrasound stated left UVJ which would least allow other alternatives including better chance of spontaneous passage or easier access if we chose intervention to try to become stone free. Proximal location may limit that option. 2. Because she is feeling much better now released to have time to continue conservative management either in or outpatient. 3. We will follow-up after KUB and review options again. Review of Systems Const: Denies: fever(s) or chills Eyes: Denies: change in vision or yellow eyes ENMT: Denies: hoarseness Card: Denies: chest pain or palpitations Resp: Denies: dyspnea, productive cough or wheezing GI: Reports: abdominal pain and nausea; Denies: diarrhea : Reports: flank pain, difficulty voiding, urinary frequency, urinary urgency, dribbling and other (Lower urinary tract symptoms have dramatically improved since she presented) Musc: Reports: back pain; Denies: joint redness Skin/Breast: Denies: rash Neuro: Denies: confusion or Slurred speech present Psych: Denies: anxiety, depression or memory loss Endo: Reports: polyuria; Denies: flushing [place]/Lymph: Denies: enlarged lymph nodes All/Imm: Denies: urticaria or acute wheezing Medications/Allergies Home Medications Medication Instructions Recorded Confirmed Last Taken Type Vitamin D3 1 cap PO .OCCASIONALLY 10/16/21 04/20/22 09/15/22 History garlic 1 tab PO .OCCASIONALLY 10/16/21 04/20/22 09/15/22 History 1 tab PO DAILY 09/15/22 09/15/22 09/14/22 History oxycodone-acetaminophen 5 mg-325 1 tab PO Q6H #12 tabs 09/15/22 Unknown Rx mg tablet (Percocet) Allergies Allergy/AdvReac Type Severity Reaction Status Date / Time No Known Allergies Allergy Verified 09/15/22 02:16 PFSH Acute PFSH: Surgical History History of oral surgery Hx laparoscopic cholecystectomy With intraoperative cholangiogram. September 2021, Dr. Granados Social History Smoking and tobacco status: never smoked Alcohol intake: never Female Reproductive History: : 5 Vitals/I&O/Wt Last Vital Signs Temp 97.3 F L 09/15/22 01:42 Pulse 73 09/15/22 04:13 Resp 16 09/15/22 05:52 BP 136/81 09/15/22 04:03 Pulse Ox 96 09/15/22 04:13 O2 Del Method 09/15/22 02:19 09/14/22 09/15/22 09/15/22 22:59 06:59 14:59 Intake Total 1000 / 1000 Balance 1000 / 1000 Weight last 48 hrs Weight 234 lb Physical Exam Const: COMMON NORMALS: no acute distress, alert and well nourished GENERAL APPEARANCE: well kempt and well developed ORIENTATION/CONSCIOUSNESS: not confused HENMT: COMMON NORMALS: normocephalic HEAD & SCALP: normal to inspection and normocephalic Eye: OTHER: No obvious scleral icterus Neck/C-Spine: GENERAL: Yes normal visual inspection Lymph: OTHER: No lymphedema Chest: OTHER: Normal movement Resp: COMMON NORMALS: normal respiratory effort EFFORT & INSPECTION: Yes able to speak in complete sentences, No labored and No Actively coughing Cardio: COMMON NORMALS: regular rate, regular rhythm and No murmurs present (Cardio) GI: OTHER: Soft, nontender, normoactive bowel sounds : OTHER: Bladder nondistended. Back/Pelvis: OTHER: No CVA tenderness Extremity: COMMON NORMALS: no clubbing, cyanosis or edema Neuro: COMMON NORMALS: no focal motor deficits SENSORIUM/ORIENTATION: Yes alert Psych: COMMON NORMALS: mental status grossly normal APPEARANCE: Yes grossly normal and Yes well kempt ATTITUDE: Yes calm and Yes engaged Skin: COMMON NORMALS: no rashes or lesions noted and no jaundice Data 09/14/22 21:06 09/14/22 21:06 A&P Assessment and plan (1) Renal colic on left side: Presumably from the previously located left lower pole stone now in the ureter. Ultrasound seems to have identified that stone in the area of the left distal ureter. (2) Hydronephrosis, left: Identified on ultrasound. Likely secondary to left distal ureteral stone (3) 16 weeks gestation of : (4) Urolithiasis: Multi stone former. Only 1 stone seen on her last CT scan in October 2021. Consistent with what was identified on ultrasound. Plan See HPI Attestations Medical Necessity Statement*: Refractory pain. Further evaluation required for decision related to intervention possible stenting possible laser. Coding Level of Care Code Acute Code for Chg Fwd Exam Comprehensive Diagnoses Renal colic on left side N23 Hydronephrosis, left N13.30 16 weeks gestation of Z3A.16 Urolithiasis N20.9
--- NOTE | 2022-09-15 08:08 | XRR_ITS ---
PROCEDURE INFORMATION: Exam: XR Abdomen Exam date and time: 09/15/2022 8:12 AM Age: 31 years old Clinical indication: Abdominal pain; Flank; Left; Additional info: Kidney stone TECHNIQUE: Imaging protocol: Radiologic exam of the abdomen. Views: Frontal supine view of the abdomen. 1 View. COMPARISON: Renal ultrasound 09/14/22. FINDINGS: Gastrointestinal tract: Mild localized bowel dilatation in the right upper quadrant. Organs: Pelvic calcifications, including a dominant 9 mm left-sided calcification corresponding to ultrasound detected left UVJ calculus. Bones/joints: Unremarkable. XR/XR KUB [id number] IMPRESSION: Dominant 9 mm left-sided pelvic calcification corresponding to ultrasound detected left UVJ calculus.
--- NOTE | 2022-09-15 08:51 | PC.NURSE ---
Patient to X-Ray for KUB.
[2022-09-16] VITALS (17 sets, daily range): BP systolic 101–144; BP diastolic 67–97; PULSE 68–90; RESP 14–18; TEMP 36.2–37.1; O2SAT 93–100
[2022-09-16] MEDS: lactated ringers 1,000 ML 100 ML IV ×2 (00:14→08:52)
[2022-09-16] MEDS: oxyCODONE-APAP 5-325 mg Tablet 1 TAB PO ×2 (02:26→15:45)
--- NOTE | 2022-09-16 06:55 | PM.PN ---
Subjective Subjective: Urology Hospital day #2 Overall she is doing well. Had no severe pain overnight. Did not pass the stone. No fever or chills. No other new symptoms of concern. Reviewed her options again which would include further conservative therapy either inpatient or outpatient versus intervention with stent or attempt at ureteroscopy. Pros cons benefits risk potential alternatives all discussed in detail. Ultimately we elected to proceed with attempt at definitive treatment of the stone via ureteroscopy (because of its low location) and stone fragmentation/extraction. Probable temporary stent. Informed consent was obtained. Vitals/I&O/Wt Last Vital Signs Temp 98.2 F 09/16/22 04:06 Pulse 83 09/16/22 04:06 Resp 15 09/16/22 04:06 BP 114/73 09/16/22 04:06 Pulse Ox 97 09/16/22 04:06 O2 Del Method 09/16/22 04:06 09/15/22 09/15/22 09/16/22 14:59 22:59 06:59 Intake Total 1800 / 1800 Output Total 1000 / 1000 1250 / 2250 500 / 2750 Balance -1000 / -1000 550 / -450 -500 / -950 Weight last 48 hrs Weight 234 lb Physical Exam Narrative: Alert and oriented no acute distress Neck good range of motion Respiratory no labored respiration. No audible wheeze Extremities good range of motion normal Neurologically no focal signs. Intact Data 09/14/22 21:06 09/14/22 21:06 A&P Assessment and plan (1) Calculus of distal left ureter: To the operating room today for either left ureteral stent placement alone or attempt at ureteral calculus via laser lithotripsy if easy access is obtainable (2) Hydronephrosis, left: (3) Renal colic on left side: (4) 16 weeks gestation of : Attestations Medical Necessity Statement*: Surgery planned for stone intervention. See HPI Coding Level of Care Code Acute Code for Chg Fwd Diagnoses Calculus of distal left ureter N20.1 Hydronephrosis, left N13.30 Renal colic on left side N23 16 weeks gestation of Z3A.16
--- NOTE | 2022-09-16 09:35 | PC.NURSE ---
Pre-op on floor to take patient to OR.
--- NOTE | 2022-09-16 09:55 | ANES.PREANE2 ---
Pre-Anesthetic Assessment Height/Weight: Height 1.68 m Weight 106.141 kg Temp Pulse Resp BP Pulse Ox O2 Del Method 97.2 F L 71 18 128/97 97 09/16/22 09:39 09/16/22 09:39 09/16/22 09:39 09/16/22 09:39 09/16/22 09:39 09/16/22 09:39 Preop Diagnosis: Gallstone pancreatitis Operation Date: 09/16/22 10:25 Proposed Procedures s Ureteroscopy(Left) - Faustino Butts MD p Cystoscopy(Left) - Faustino Butts MD s Laser Lithotripsy(Not Applicable) - Faustino Butts MD s Ureteral Stent Placement(Left) - Faustino Butts MD Familial anesthetic complications: None Was Beta Jennifer taken within 24 hours: N/A Was Clonidine taken within 24 hours: N/A Last intake: > 8hrs Social No alcohol and No tobacco Exam alert, oriented x 3, clear to auscultation bilaterally and regular rate & rhythm Airway Mallampati: Class II Dentition: full 16 weeks GI few minor episodes of heartburn Anesthetic Plan ASA status: 2 Anesthesia: General Risk of > 500 ml blood loss (7ml/kg in children): No Medications/Allergies Home Medications Medication Instructions Recorded Confirmed Last Taken Type Vitamin D3 1 cap PO .OCCASIONALLY 10/16/21 04/20/22 09/15/22 History garlic 1 tab PO .OCCASIONALLY 10/16/21 04/20/22 09/15/22 History 1 tab PO DAILY 09/15/22 09/15/22 09/14/22 History oxycodone-acetaminophen 5 mg-325 1 tab PO Q6H #12 tabs 09/15/22 Unknown Rx mg tablet (Percocet) Allergies Allergy/AdvReac Type Severity Reaction Status Date / Time No Known Allergies Allergy Verified 09/15/22 02:16 Current Medications Generic Name Dose Route Start Last Admin Trade Name Freq PRN Reason Stop Dose Admin Lactated Ringer's 1,000 mls @ 100 mls/hr 09/15/22 06:45 09/16/22 08:52 Lactated Ringers IV 100 mls/hr .Q10H JOSH Administration Oxycodone/Acetaminophen 1 tab 09/15/22 10:25 09/16/22 02:26 Oxycodone-Apap 5-325 Mg Tablet PO 1 tab Q4H PRN Administration MODERATE PAIN PFSH Anesthesia Surgical History History of oral surgery Hx laparoscopic cholecystectomy With intraoperative cholangiogram. September 2021, Dr. Granados Social History Smoking and tobacco status: never smoked Alcohol intake: never Female Reproductive History : 5 Data Anesthesia 09/14/22 21:06 09/14/22 21:06 Short CBC 09/14/22 Range/Units 21:06 WBC 12.1 H (4.0-10.0) 10^3/uL Hgb 12.2 (11.5-15.3) g/dL Hct 37.8 (37.0-47.0) % MCV 87.9 (81-99) fl Plt Count 228 (130-400) 10^3/cmm Neut % (Auto) 86.6 % Neut # (Auto) 10.49 H (1.8-7.7) 10^3/uL BMP 09/14/22 21:06 Sodium 135 L Potassium 3.7 Chloride 101 Carbon Dioxide 22 BUN 12 Creatinine 0.6 Glucose 122 H Calcium 9.3 Liver Function 09/14/22 Range/Units 21:06 Total Bilirubin 0.3 (0.15-1.2) mg/dL AST 13 (0-32) U/L ALT 14 (0-33) U/L Alkaline Phosphatase 75 (35-105) U/L Albumin 3.7 (3.5-5.2) g/dL Urine 09/14/22 Range/Units 23:00 Urine Color Yellow (Yellow) Urine Appearance Clear (CLEAR) Urine pH 5 (5-7) Ur Specific [place] 1.030 (1.005-1.030) Urine Protein Neg (Negative) Urine Glucose (UA) Norm (Normal) Urine Ketones 2+ H (Negative) Urine Nitrate Negative (Negative) Urine Bilirubin Neg (Negative) Ur Leukocyte Esterase Negative (Negative) Urine RBC 0-4 H (0-2) /hpf Urine WBC 0-4 H (0-5) /hpf Cardiac Studies: No Data to Display
[2022-09-16] MEDS: sodium chloride 0.9% 1,000 ML 30 ML IV (10:10)
--- NOTE | 2022-09-16 11:12 | SC_ITS ---
WS: [id number] INTRAOPERATIVE TECHNIQUE: 3 Spot fluoroscopic images for intraoperative purposes. FLUOROSCOPY TIME: 4.2 seconds CLINICAL INFORMATION: STENT COMPARISON: None. FINDINGS: Cystoscopy with LEFT ureteroscopy. LEFT ureteral stent placement. SC/C-arm [place] for Urology IMPRESSION: Images obtained for intraoperative purposes.
--- NOTE | 2022-09-16 11:15 | P.OP_ITS ---
Operative Report Date of procedure: September 16, 2022 Pre-op diagnosis: Large left distal obstructing ureteral stone with refractory symptoms Intrauterine EGA 16-weeks Post-op diagnosis: Large left distal obstructing ureteral stone with refractory symptoms Intrauterine EGA 16-weeks Procedure done: 1. Cystoscopy, LEFT: Retrograde, ureteroscopy, laser, stent Implants: 4.5 [place] by 26 cm double-pigtail without string Specimens removed/disposition: Stone fragments Surgeon: Beckie Estimated blood loss: Minimal Urine output: Not measured Complications: None Findings: Anesthesia: General Condition: Stable Disposition: PACU Intraoperative findings: * Stone in the expected position * Completely fragmented with laser lithotripsy * Brief History: Ms. Rice is a very pleasant 31-year-old white female with her fifth child at estimated gestational age of 16 weeks. She presented to the emergency department in severe extremis related to left renal colic. She was known to have a stone on her left kidney that measured about 8 mm in its longest dimension. An ultrasound done in the ER demonstrated left hydronephrosis down to the distal ureter where there appeared to be similar sized stone. A single shot KUB was performed and confirmed the previously identified stone and that was located in the kidney was now in the left distal ureter. Ultimately she chose to proceed with intervention with hopes of being able to treat the stone definitively with laser lithotripsy. Option of placing a stent and changing it periodically while she was and then ultimately dealing with a stone after the baby was delivered was also reviewed as well as further conservative management hopes of spontaneously passage either inpatient or outpatient. We had multiple very detailed benefit risk conversations about these options and both she and her as well as myself felt comfortable with proceeding as planned with ureteroscopic treatment of the stone if possible and if not then transition to just a stent placement Procedure: After routine preoperative evaluation examination and obtaining of informed consent she was taken to the operating suite on 09/16/2022 where general anesthesia was administered without difficulty after appropriate timeout was performed, SCDs confirmed to be functioning, preoperative antibiotics administered, beta-kiran protocol confirmed. Prepped and draped in usual sterile fashion in dorsolithotomy position paying careful attention to avoiding pressure points. 21 [place] cystoscope with 30 degree lens was introduced into the urethra meatus and advanced into the bladder under videoscopy. Bladder was systematically examined. No gross pathology was identified. An 8 [place] cone- tip catheter intubated into the left ureteral orifice for left single shot retrograde. Contrast was injected and then 1 shot fluoroscopy confirmed the stone in the distal ureter with dilation of ureter proximal to the stone. A flexible tip guidewire was then easily passed up the left ureter bypassing the stone. A 24 ureteral access sheath inner sheath was then passed and easily advanced up the left ureter 2 or 3 inches. A second pass this time with a full 24 ureteral access sheath for the purposes of dilation was then easily accomplished as well. A second guidewire was then passed A 7 [place] offset semirigid ureteroscope was then advanced over the working (second) guidewire and the stone was encountered in expected position and completely fragmented with a 200 ?m thulium superpulse laser fiber. Much of the debris flushed from the ureter and some of the fragments were removed with a Lucina basket. The fluoroscopy was positioned over the left kidney, a 4.5 [place] by 26 cm double-pigtail stent was advanced to the appropriate length over the guidewire the guidewire pulled back 5 inches and a single shot demonstrated the proximal curl in the area of the renal pelvis A total of 3 or 4 single quick shot images were taken. The stent was confirmed to be draining and the procedure was completed. The fragments that had been dropped into the bladder with the basket were then flushed free and sent for pathologic evaluation. She tolerated procedure well without complications. She was awakened in the operating room and returned to the PACU. OB ultrasound confirmed heart rate tones. PLANS: 1. Observe over the afternoon and if she is doing well discharge this evening 2. Plan on removing the stent in about 2 weeks in the office. This is to facilitate healing before stent removal and avoid recurrent obstruction from edematous changes identified intraoperatively
[2022-09-16] MEDS: ceFAZolin 1,000 MG in sodium chloride 0.9% (plus) 50 ML 100 MG IV (11:26)
--- NOTE | 2022-09-16 12:07 | SUR.OPER ---
OMNIPAQUE 350MG/ML LOT [id number] EXP 10/29/24. 3ML USED
--- NOTE | 2022-09-16 16:29 | ANE.PACU2 ---
Inpatient post-anesthesia follow up: Airway intact: Yes Vital signs: Temperature 98.6 F Pulse Rate 72 Respiratory Rate 16 Blood Pressure 130/83 Pulse Oximetry 95 Oxygen Delivery Me thod Room Air Oxygen Flow Rate 6 Fraction of Inspir ed Oxygen Hydration adequate: Yes Nausea and vomiting: No Pain level: 1 Mental status: Baseline
--- NOTE | 2022-09-16 18:27 | PM.DCS ---
Discharge Providers Date of Admission: 09/15/22 00:59 Date of Discharge: September 16, 2022 Attending Provider at Admission: Faustino Butts MD Attending Provider at Discharge: Faustino Butts MD Diagnoses at Discharge Discharge Diagnosis (1) Calculus of distal left ureter: Details from hospital stay: Large distal ureteral stone with obstruction complicating . Status: Acute (2) Hydronephrosis, left: Status: Acute (3) Renal colic on left side: Status: Acute (4) 16 weeks gestation of : Status: Acute Reason for Visit Reason for Visit: Left renal colic Brief History: Patient is a very pleasant 31-year-old white female with prior history of urolithiasis during . She is about 16 weeks now and all apparently is going well with the baby. She developed acute onset of left flank pain typical for renal colic but worse that she is experienced in the past presented to the emergency department. An ultrasound showed left hydronephrosis, no hydronephrosis on the right. There appeared to be a calcific density in the left distal ureter and she was admitted because could not get the pain adequately controlled for outpatient management. A single shot KUB showed a calcification in the area of the left distal ureter and this calcification had been seen previously in the left interpolar area on 2 CT scans from the past. She was offered inpatient conservative management, outpatient conservative management with hopes of spontaneous passage, or treatment with either indwelling ureteral stent with schedule changes until she delivers versus an attempt at definitive treatment of the stone endoscopically. She and her had a lot of conversations about this and ultimately decided to proceed with endoscopic treatment of the stone if possible and if not easily reachable with ureteroscopy than just a stent placement. Hospital Course Hospital Course She is admitted through the emergency department. Was managed aggressively for symptomatic control this was for the most part achieved although she did have some intermittent pain. She ultimately chose for intervention as opposed to continuing conservative management and on 09/16/2023 she underwent cystoscopy, LEFT: Retrograde, ureteroscopy, laser, stent. Only 2-4 single shot low-dose fluoroscopy images were obtained to confirm position at critical times during the procedure. There were no complications. heart tones were normal post procedure. She was observed over the afternoon on the day of the surgery and did well and was discharged on evening of 09/16/2023. Plans were put in place to remove the stent the week of 09/30/2022. She was discharged in stable condition. Physical Exam Narrative: She was alert and oriented no acute distress Neck showed good range of motion. Respiratory showed unlabored, no wheezes, no tachypnea. Normal ambulation. No neurologic signs of concern. She was voiding well with some minimal amount of hematuria. Normal neuropsychiatric exam. Discharge Data Studies Completed and Pending Completed Studies During Hospitalization Category Date Time Status XR KUB [id number] Stat Exams 09/15/22 08:08 Completed US kidney bilateral [US renal BI* [id number]] Stat Ultrasound 09/14/22 21:05 Completed Pending at discharge Category Date Time Status Stone Analysis Routine Lab 09/16/22 12:15 Received Pathology: Surgical [PTH] Routine Pth 09/16/22 15:24 Ordered Radiology Impressions Renal Ultrasound 09/14/22 21:05 IMPRESSION: 1. Moderate left hydroureter with a suspected 8 mm calculus at the left ureterovesical junction. Negative for a left ureteral jet. 2. Hepatic steatosis. KUB X-Ray 09/15/22 08:08 IMPRESSION: Dominant 9 mm left-sided pelvic calcification corresponding to ultrasound detected left UVJ calculus. C-Arm Fluoroscopy 09/16/22 11:12 IMPRESSION: Images obtained for intraoperative purposes. Laboratory Results WBC 12.1 10^3/uL (4.0-10.0) H 09/14/22 21:06 RBC 4.30 10^6/uL (4.1-5.3) 09/14/22 21:06 Hgb 12.2 g/dL (11.5-15.3) 09/14/22 21:06 Hct 37.8 % (37.0-47.0) 09/14/22 21:06 MCV 87.9 fl (81-99) 09/14/22 21:06 MCH 28.4 pg (28.0-34.0) 09/14/22 21:06 MCHC 32.3 g/dL (30.0-36.0) 09/14/22 21:06 RDW 13.2 % (12.1-15.1) 09/14/22 21:06 Plt Count 228 10^3/cmm (130-400) 09/14/22 21:06 MPV 11.5 fL (7.4-10.4) H 09/14/22 21:06 Neut % (Auto) 86.6 % 09/14/22 21:06 Lymph % (Auto) 9.3 % 09/14/22 21:06 [place] % (Auto) 3.1 % 09/14/22 21:06 Eos % (Auto) 0.2 % 09/14/22 21:06 Baso % (Auto) 0.2 % 09/14/22 21:06 Neut # (Auto) 10.49 10^3/uL (1.8-7.7) H 09/14/22 21:06 Lymph # (Auto) 1.1 10^3/uL (0.8-4.8) 09/14/22 21:06 [place] # (Auto) 0.4 10^3/uL (0.2-0.9) 09/14/22 21:06 Eos # (Auto) 0.0 10^3/uL (0.0-0.8) 09/14/22 21:06 Baso # (Auto) 0.0 10^3/uL (0.0-0.1) 09/14/22 21:06 Nucleated RBC % (auto) 0 % 09/14/22 21:06 Nucleated RBCs # 0.0 /100WBC 09/14/22 21:06 Sodium 135 mmol/L (136-145) L 09/14/22 21:06 Potassium 3.7 mmol/L (3.5-5.1) 09/14/22 21:06 Chloride 101 mmol/L (98-107) 09/14/22 21:06 Carbon Dioxide 22 mmol/L (22-29) 09/14/22 21:06 Anion Gap 15.7 (5-19) 09/14/22 21:06 BUN 12 mg/dL (6-20) 09/14/22 21:06 Creatinine 0.6 mg/dL (0.5-0.9) 09/14/22 21:06 GFR Calculation 115.1 mL/min (90-130) 09/14/22 21:06 Glucose 122 mg/dL (65-115) H 09/14/22 21:06 Calculated Osmolality 281 mOsm/kg (285-295) L 09/14/22 21:06 Calcium 9.3 mg/dL (8.5-10.5) 09/14/22 21:06 Total Bilirubin 0.3 mg/dL (0.15-1.2) 09/14/22 21:06 AST 13 U/L (0-32) 09/14/22 21:06 ALT 14 U/L (0-33) 09/14/22 21:06 Alkaline Phosphatase 75 U/L (35-105) 09/14/22 21:06 Total Protein 7.3 g/dL (6.6-8.7) 09/14/22 21:06 Albumin 3.7 g/dL (3.5-5.2) 09/14/22 21:06 Globulin 3.6 g/dL (1.3-4.6) 09/14/22 21:06 Lipase 11 U/L (13-60) L 09/14/22 21:06 Urine Color Yellow (Yellow) 09/14/22 23:00 Urine Appearance Clear (CLEAR) 09/14/22 23:00 Urine pH 5 (5-7) 09/14/22 23:00 Ur Specific [place] 1.030 (1.005-1.030) 09/14/22 23:00 Urine Protein Neg (Negative) 09/14/22 23:00 Urine Glucose (UA) Norm (Normal) 09/14/22 23:00 Urine Ketones 2+ (Negative) H 09/14/22 23:00 Urine Blood Trace (Negative) H 09/14/22 23:00 Urine Nitrate Negative (Negative) 09/14/22 23:00 Urine Bilirubin Neg (Negative) 09/14/22 23:00 Urine Urobilinogen Neg mg/dL (Negative) 09/14/22 23:00 Ur Leukocyte Esterase Negative (Negative) 09/14/22 23:00 Urine RBC 0-4 /hpf (0-2) H 09/14/22 23:00 Urine WBC 0-4 /hpf (0-5) H 09/14/22 23:00 Ur Squamous Epith Cells 15-25 /hpf (0-5) H 09/14/22 23:00 Amorphous Sediment Not Reportable 09/14/22 23:00 Urine Bacteria Trace /hpf (NONE) 09/14/22 23:00 Urine Mucus 2+ /hpf 09/14/22 23:00 Procedures Performed Cystoscopy, LEFT: Retrograde, ureteroscopy, laser, stent Vitals Last Vital Signs Temp 98.2 F 09/16/22 17:31 Pulse 71 09/16/22 17:31 Resp 16 09/16/22 17:31 BP 116/76 09/16/22 17:31 Pulse Ox 97 09/16/22 17:31 O2 Del Method 09/16/22 17:31 O2 Flow Rate 6 09/16/22 12:29 Discharge Plan Discharge Patient Disposition: Home Condition: Stable Prescriptions: New Percocet 5-325 mg tablet 1 tab PO Q6H Qty: 12 0RF Continued garlic Tablet 1 tab PO .OCCASIONALLY Vitamin D3 1 cap PO .OCCASIONALLY 1 tab PO DAILY Discharge Orders: Discharge Order (Routine); Ordered 09/16/22 Ordered By: Faustino Butts Referrals: Faustino Butts MD [Physician] - 10/02/22 (Cystoscopy, stent removal. No x-rays) Discharge Diet: Usual diet Discharge Activity: Increase activity as tolerated Patient Instructions: Opioid Safety, Pain Management Activity Restrictions/Additional Instructions: 1. The procedure went very well. The stone was completely fragmented and a small stent was left indwelling for further healing and passive dilation of the ureter. 2. The stent will be removed the week of 09/30/2022. That appointment needs to be made. My office number is [phone]. 3. As a reminder I will be out of town from Friday the till Friday the . Please call my office if you have any questions in my absence. The hospital air drier machine operator can reach me if you have any questions or concerns. Please call this week if you think something is concerning. Discharge Attestations Time Spent in Discharge Care*: less than 30 min Quality Metrics Clinical Quality Measures [ No reported AMI, CVA or VTE this stay] Coding Level of Care Code Acute Chg FW DC note Diagnoses Calculus of distal left ureter N20.1 Hydronephrosis, left N13.30 Renal colic on left side N23 16 weeks gestation of Z3A.16
--- NOTE | 2022-09-16 19:49 | PC.NURSE ---
This nurse used Doppler and obtained reading of 135 but patient said that was low for her baby. I went and got her dayshift nurse shaista to assist and we was not able to get a clear reading as baby was moving around. We got the baby side ultrasound and found babys heart beat. Good heart beat noted and verified by KENDALL Banks and Shaista ARGUETA unable to get an exact number from the bedside ultrasound
--- NOTE | 2022-09-16 20:00 | PC.NURSE ---
patient request that I try one more time to obtain a good reading of babies heart beat with the doppler since the bedside ultrasound does not give a number. I was able to lay patient back flat and found babies heart beat of 165. Patient was pleased and said that sounded more like normal.
[2022-09-20 18:55] LABS: Stone Source L URETER
== END 2022-09-16 20:07 | disposition home or self-care (01) ==
LOC: ER 09-15 00:19 → OBGYN 09-15 01:56
PROVIDERS: Admitting Provider Urology; Emergency Provider Physician Assistant; Visit Provider Urology
PROC: 0TJ98ZZ Inspection of Ureter, Via Natural or Artificial Opening Endoscopic (ICD-10-PCS; CPT 52351; principal; 2022-09-16 10:25)
PROC: 0TJB8ZZ Inspection of Bladder, Via Natural or Artificial Opening Endoscopic (ICD-10-PCS; CPT 52000; 2022-09-16 10:25)
PROC: (CPT 52356; 2022-09-16 10:25)
PROC: (CPT 50605; 2022-09-16 10:25)
DX: O26.892 Other specified pregnancy related conditions, second trimester (principal); Z3A.16 16 weeks gestation of pregnancy; N23 Unspecified renal colic; N13.30 Unspecified hydronephrosis; N20.9 Urinary calculus, unspecified; N20.1 Calculus of ureter
CPT/HCPCS: 52356; 74018; 76000; 76770; 80053; 81001; 82365; 83690; 85025; 88300; 96374; 96375; 99285; C2625; G0378; J0330; J0690; J1100; J1170; J2270; J2405; J2704; J2765; J3010; J3490; J7030; J7120

== ENCOUNTER → 2022-10-02 16:12 | Outpatient (BNVA) | payer BC, MEDICAID, SELFPAY | PROVIDERS: Visit Provider Urology | DX: N20.9 Urinary calculus, unspecified (principal); Z96.0 Presence of urogenital implants | CPT/HCPCS: 81003 ==

== ENCOUNTER → 2025-07-05 08:50 | Outpatient (BNVA) | payer BC, MEDICAID, SELFPAY | PROVIDERS: PCP Family Medicine; Visit Provider Family Medicine | DX: Z13.6 Encounter for screening for cardiovascular disorders (principal); Z68.41 Body mass index [BMI] 40.0-44.9, adult | CPT/HCPCS: 80053; 80061; 83036; 84439; 84443; 85025 ==